=== PATIENT | male | born 1960 | race Caucasian/White ===

== ENCOUNTER 2022-03-07 16:14 | Inpatient (IN) ==
--- NOTE | 2022-03-07 16:59 | Emergency Department Note ---
Impression & Plan Weakness, Transaminitis, Elevated bilirubin, Leg swelling ED Provider Note NAME: HE LUCAS AGE: 62 SEX: M : 1960 ARRIVES VIA: Walk-In INFORMANT: Patient, Family ED PROVIDER(S): Gurdeep Madison DO CHIEF COMPLAINT: Weakness HPI: Patient is a 62-year-old male who just got discharged from [facility] earlier this week. He was admitted last week for weakness and alcohol abuse. He generally drinks about a half a gallon of alcohol every 2 days. He has not been drinking any vodka since being discharged. Family is unable to care for him at home. He can barely walk. He denies any headache or change in vision. No chest pain or shortness of breath. No nausea, vomiting, or diarrhea. No dysuria, urgency, or frequency. No other exacerbating or remitting factors. ROS: See above HPI for pertinent positives & negatives. A total of 10 systems reviewed and were otherwise negative. PAST MEDICAL HISTORY:See Below PAST SURGICAL HISTORY:See Below FAMILY HISTORY:See Below SOCIAL HISTORY:See Below HOME MEDICATIONS:See Below ALLERGIES:See Below VITALS:See Below PHYSICAL EXAMINATION: GENERAL: Sitting up in bed, alert, well appearing, well nourished, no distress, non-toxic EYE EXAM: normal conjunctiva. OROPHARYNX: no exudate, no erythema, lips, buccal mucosa, and tongue normal and mucous membranes are moist NECK: supple, no nuchal rigidity, no adenopathy, non-tender LUNGS: Clear to auscultation. Normal chest wall mechanics HEART: no murmurs, S1 normal and S2 normal ABDOMEN: abdomen soft, non-tender, normo-active bowel sounds, no masses, no aiden ound or guarding. UPPER EXTREMITIES: upper extremities are grossly normal. LOWER EXTREMITIES: No pitting edema. NEURO EXAM: Normal sensorium, cranial nerves II-XII grossly intact, normal speech, no weakness of arms, no weakness of legs. Wide shuffling gait. No drift. Tremors of bilateral upper extremities. [id number] intact. MEDICAL DECISION MAKING: Patient is a 62-year-old male who presents the ER for above-stated complaint. Family brought him in as they can no longer care for him at home. He has had a gradual deterioration since being admitted and when they got him home from [facility] they have been struggling to take care of him. Labs show no significant leukocytosis. He was referred in by PCP. Hemoglobin with mild anemia at 9. BMP was unremarkable. T bili slightly up at 1.5. AST and ALT at 100. Lipase was normal. COVID was negative. Chest x-ray as well as Doppler of the right lower extremity and ultrasound gallbladder was unremarkable. Case discussed with hospitalist for further evaluation. Triage Nursing notes reviewed. Limited review of prior medical records performed Vital Signs: reviewed and remarkable for no significant abnormalities Differential diagnosis: Infection, dehydration, metabolic abnormality, hypo/hyperglycemia, electrolyte disturbance, anemia, hypoxia, cardiac sources, intracerebral event, toxicologic, neurologic, as well as other pathologies. ER treatment provided: See below Diagnostics interpreted by me: ECG: none Cardiac Monitoring: An order was placed for continuous cardiac monitoring. The monitor shows a rate of 80 with sinus rhythm. Laboratory studies: As stated above and show below. Imaging studies: Ultrasound liver/gallbladder was unremarkable for any choledocholithiasis Ultrasound leg showed no DVT Chest x-ray was unremarkable Consultation(s): Discussed with [facility] hospitalist for further evaluation Procedures: none Critical Care: None Past Med/Surg History Social History Smoking Status: Never smoker Tobacco Type: E-cigarettes / Vaping Hx Alcohol Use: Yes Alcohol type: beer Hx Substance Use: No Preferred Language: Omani Communication Ability: Effective Electrical Apprentice Required: No Beliefs That Will Affect Care: None Current Living Situation: Spouse and Family Current Living Situation Comment: Pt reported living with spouse and son Other Information That Helps Us Care for You: No Feels Safe at Home: Yes Safety Concerns: Feels Safe At This Time Assistive Devices: Glasses and Walker Allergies Allergies Allergy/AdvReac Type Severity Reaction Status Date / Time No Known Allergies Allergy Unverified 03/07/22 17:14 Home Meds Home Medications Medication Instructions Recorded Confirmed allopurinol 300 mg tablet 300 mg PO QAM 03/07/22 03/07/22 chlordiazepoxide HCl 25 mg capsule 25 mg PO TID PRN 03/07/22 03/07/22 dexamethasone 4 mg tablet 4 mg PO QAM 03/07/22 03/07/22 (Decadron) lisinopril 30 mg tablet 30 mg PO QAM 03/07/22 03/07/22 Results & Data (ED) Vital Signs Vital Signs - 24 hr 03/07/22 16:19 03/07/22 17:04 03/07/22 17:05 Temperature 36.3 C L Temperature Source Temporal Artery Scan Pulse Rate 84 83 Pulse Rate [Apical] 80 Pulse Rate from SpO2 Sensor 81 Respiratory Rate 18 24 Respiratory Effort / Characteristics Non-Labored Respiratory Depth Normal Respiratory Pattern Regular Blood Pressure 111/75 Blood Pressure [Left Arm] 139/84 Blood Pressure Mean 87 Blood Pressure Mean [Left Arm] 102 Pulse Oximetry 100 100 99 Oxygen Delivery Method Room Air Room Air Room Air Sepsis Recent Fever Within 48 Hours No Sepsis New/Unexplained Change in Mental Status No Sepsis Action Taken by Nursing No Action Required 03/07/22 17:30 03/07/22 18:00 03/07/22 18:30 Temperature Temperature Source Pulse Rate 82 83 88 Pulse Rate [Apical] Pulse Rate from SpO2 Sensor 81 84 88 Respiratory Rate 21 20 24 Respiratory Effort / Characteristics Respiratory Depth Respiratory Pattern Blood Pressure Blood Pressure [Left Arm] Blood Pressure Mean Blood Pressure Mean [Left Arm] Pulse Oximetry 99 99 99 Oxygen Delivery Method Sepsis Recent Fever Within 48 Hours Sepsis New/Unexplained Change in Mental Status Sepsis Action Taken by Nursing 03/07/22 19:00 Temperature Temperature Source Pulse Rate 82 Pulse Rate [Apical] Pulse Rate from SpO2 Sensor 82 Respiratory Rate 19 Respiratory Effort / Characteristics Respiratory Depth Respiratory Pattern Blood Pressure Blood Pressure [Left Arm] Blood Pressure Mean Blood Pressure Mean [Left Arm] Pulse Oximetry 100 Oxygen Delivery Method Sepsis Recent Fever Within 48 Hours Sepsis New/Unexplained Change in Mental Status Sepsis Action Taken by Nursing Laboratory Data Result diagrams: 03/07/22 17:05 03/07/22 17:05 Lab Results 03/07/22 03/07/22 Range/Units 17:05 17:05 WBC 5.92 (4.8-10.8) K/uL RBC 2.53 L (4.7-6.1) M/uL Hgb 8.9 L (14.0-18.0) g/dL Hct 26.7 L (42-52) % MCV 105.5 H (80-100) fL MCH 35.2 H (25-34) pg MCHC 33.3 (32-36) g/dL RDW Std Deviation 60.2 H (36.4-46.3) fL RDW Coeff of Gage 15.7 H (11.5-14.5) % Plt Count 181 (130-400) K/uL MPV 9.3 (7.4-10.4) fL Immature Gran % (Auto) 0.7 % Neut % (Auto) 81.8 % Lymph % (Auto) 7.4 % Candler % (Auto) 9.6 % Eos % (Auto) 0.3 % Baso % (Auto) 0.2 % Neut # (Auto) 4.84 (1.4-6.5) K/uL Lymph # (Auto) 0.44 L (1.2-3.4) K/uL Candler # (Auto) 0.57 (0.11-0.59) K/uL Eos # (Auto) 0.02 (0-0.5) K/uL Baso # (Auto) 0.01 (0-0.2) K/uL Immature Gran # (Auto) 0.04 H (0.00-0.02) K/uL Sodium 136 (136-145) mmol/L Potassium 4.7 (3.5-5.1) mmol/L Chloride 107 (98-107) mmol/L Carbon Dioxide 22 (21-32) mmol/L Anion Gap 7 (3-11) BUN 28 H (6-23) mg/dl Creatinine 1.26 (0.6-1.4) mg/dl Est Cr Clr Drug Dosing Not Reportable Est GFR ( Amer) 69.9 ml/min Est GFR (Non-Af Amer) 60.3 ml/min BUN/Creatinine Ratio 22.2 H (10-20) Glucose 119 H (70-99(Fasting)) mg/dl Calcium 8.9 (8.5-10.1) mg/dl Total Bilirubin 1.5 H (0.2-1.0) mg/dl AST 115 H (13-39) U/L ALT 89 H (7-52) U/L Alkaline Phosphatase 194 H (34-104) U/L Total Protein 7.0 (6.0-8.3) gm/dl Albumin 3.7 (3.4-5.0) gm/dl Globulin 3.3 (2.5-4.0) gm/dl Albumin/Globulin Ratio 1.1 (0.9-2) Lipase 21 (11-82) U/L Imaging Data Radiologist's Impression: Gallbladder Ultrasound 03/07/22 18:47 ULTRASOUND RIGHT UPPER QUADRANT ABDOMEN CLINICAL HISTORY: Elevated hepatic transaminases and bilirubin. COMPARISON STUDY: No priors TECHNIQUE: Real-time, grayscale, and color flow sonography of the right upper quadrant of the abdomen was performed. Images are reviewed in the transverse and longitudinal planes. FINDINGS: Liver: The liver is enlarged and demonstrates heterogeneously increased echotexture consistent with hepatic steatosis. Note that this degrades acoustic penetration of the liver. There is no intrahepatic biliary ductal dilatation. The main portal vein is patent. Gallbladder: The gallbladder is normal in appearance. No gallstones are identified. There is no gallbladder wall thickening or pericholecystic fluid. A sonographic Sims's sign is reportedly absent. The common bile duct measures up to 0.7 cm in diameter. Pancreas: Visualized portions of the pancreatic head and body are normal in appearance. Right kidney: Survey images of the right kidney demonstrate normal size and echotexture. There is no hydronephrosis. Ascites: None. IMPRESSION: 1. No acute sonographic abnormality is seen in the right upper quadrant. No gallstones are identified. 2. Hepatomegaly and hepatic steatosis. ACT 112: Negative or not required by law. Electronically signed by: Eddie Torres M.D. 03/07/2022 8:06 PM Venous Doppler Study 03/07/22 18:47 ULTRASOUND RIGHT LOWER EXTREMITY VENOUS CLINICAL HISTORY: Right leg swelling. COMPARISON STUDY: No priors. TECHNIQUE: Real-time, grayscale, and color Doppler sonography of the deep veins of the right lower extremity was performed from the inguinal crease to the calf. Compression and augmentation were utilized. FINDINGS: There is no sonographic evidence of deep venous thrombosis identified in the right lower extremity. The common femoral, superficial femoral, and popliteal veins are patent and normally compressible. The greater saphenous vein and the profunda femoris vein at the junction with the common femoral vein are clear. The visualized calf veins are patent. IMPRESSION: There is no sonographic evidence of deep venous thrombosis identified in the right lower extremity. ACT 112: Negative or not required by law. Electronically signed by: Eddie Torres M.D. 03/07/2022 8:04 PM Chest X-Ray 03/07/22 18:48 SINGLE VIEW CHEST CLINICAL HISTORY: Lower extremity edema FINDINGS: An AP, portable, upright chest radiograph is obtained. No prior studies are available for comparison at the time of dictation. The cardiomediastinal silhouette is unremarkable. There is no elevation of the right hemidiaphragm and minimal bibasilar atelectasis. The lungs and pleural spaces are otherwise clear. No pneumothorax is seen. The bony thorax is grossly intact. IMPRESSION: No active disease in the chest. ACT 112: Negative or not required by law. Electronically signed by: Eddie Torres M.D. 03/07/2022 7:47 PM Discharge Plan Visit Data Chief Complaint: Referred by Doctor Stated Complaint: REFERRED BY DR FOR SWELLING IN LEGS ED Provider: Gurdeep Madison Discharge Problem: Weakness, Transaminitis, Elevated bilirubin, Leg swelling Patient Disposition: Admitted As Inpatient Discharge Instructions Interventions: ED Discharge Assessment Last Done: 03/07/22 21:47
[2022-03-07 17:19] LABS: Basophils # (auto) 0.01 K/uL (0-0.2); Basophils % (auto) 0.2 %; Eosinophils # (auto) 0.02 K/uL (0-0.5); Eosinophils % (auto) 0.3 %; Hematocrit (blood only) 26.7 % (42-52); Hemoglobin 8.9 g/dL (14.0-18.0); Immature Granulocytes # (auto) 0.04 K/uL (0.00-0.02); Immature Granulocytes % (auto) 0.7 %; Lymphocytes # (auto) 0.44 K/uL (1.2-3.4); Lymphocytes % (auto) 7.4 %; Mean Corpuscular Hemoglobin 35.2 pg (25-34); Mean Corpuscular Hgb Conc 33.3 g/dL (32-36); Mean Corpuscular Volume 105.5 fL (80-100); Mean Platelet Volume 9.3 fL (7.4-10.4); Monocytes # (auto) 0.57 K/uL (0.11-0.59); Monocytes % (auto) 9.6 %; Neutrophils # (auto) 4.84 K/uL (1.4-6.5); Neutrophils % (auto) 81.8 %; Platelet Count 181 K/uL (130-400); RDW Coefficient of Variation 15.7 % (11.5-14.5); RDW Standard Deviation 60.2 fL (36.4-46.3); Red Blood Count 2.53 M/uL (4.7-6.1); White Blood Count 5.92 K/uL (4.8-10.8)
[2022-03-07 18:37] LABS: Alanine Aminotransferase 89 U/L (7-52); Albumin Globulin Ratio 1.1 (0.9-2); Albumin Level 3.7 gm/dl (3.4-5.0); Alkaline Phosphatase 194 U/L (34-104); Anion Gap 7 (3-11); Aspartate Aminotransferase 115 U/L (13-39); BUN Creatinine Ratio 22.2 (10-20); Bilirubin,Total 1.5 mg/dl (0.2-1.0); Blood Urea Nitrogen 28 mg/dl (6-23); Calcium 8.9 mg/dl (8.5-10.1); Carbon Dioxide 22 mmol/L (21-32); Chloride 107 mmol/L (98-107); Est GFR (African American) 69.9 ml/min; Est GFR (Non-African American) 60.3 ml/min; Globulin 3.3 gm/dl (2.5-4.0); Glucose 119 mg/dl (70-99(Fasting)); Lipase 21 U/L (11-82); Potassium 4.7 mmol/L (3.5-5.1); Sodium 136 mmol/L (136-145)
--- NOTE | 2022-03-07 19:49 | XRay Report ---
SINGLE VIEW CHEST CLINICAL HISTORY: Lower extremity edema FINDINGS: An AP, portable, upright chest radiograph is obtained. No prior studies are available for c omparison at the time of dictation. The cardiomediastinal silhouette is unremarkable. There is no el evation of the right hemidiaphragm and minimal bibasilar atelectasis. The lungs and pleural spaces ar e otherwise clear. No pneumothorax is seen. The bony thorax is grossly intact. IMPRESSION: No active disease in the chest. ACT 112: Negative or not required by law. Electronically signed by: Eddie Torres M.D. 03/07/2022 7:47 PM
--- NOTE | 2022-03-07 20:06 | Ultrasound Report ---
ULTRASOUND RIGHT LOWER EXTREMITY VENOUS CLINICAL HISTORY: Right leg swelling. COMPARISON STUDY: No priors. TECHNIQUE: Real-time, grayscale, and color Doppler sonography of the deep veins of the right lower ex tremity was performed from the inguinal crease to the calf. Compression and augmentation were utilize d. FINDINGS: There is no sonographic evidence of deep venous thrombosis identified in the right lower ex tremity. The common femoral, superficial femoral, and popliteal veins are patent and normally brayan sible. The greater saphenous vein and the profunda femoris vein at the junction with the common femor al vein are clear. The visualized calf veins are patent. IMPRESSION: There is no sonographic evidence of deep venous thrombosis identified in the right lower extremity. ACT 112: Negative or not required by law. Electronically signed by: Eddie Torres M.D. 03/07/2022 8:04 PM
--- NOTE | 2022-03-07 20:07 | Ultrasound Report ---
ULTRASOUND RIGHT UPPER QUADRANT ABDOMEN CLINICAL HISTORY: Elevated hepatic transaminases and bilirubin. COMPARISON STUDY: No priors TECHNIQUE: Real-time, grayscale, and color flow sonography of the right upper quadrant of the abdomen was performed. Images are reviewed in the transverse and longitudinal planes. FINDINGS: Liver: The liver is enlarged and demonstrates heterogeneously increased echotexture consistent with h epatic steatosis. Note that this degrades acoustic penetration of the liver. There is no intrahepatic biliary ductal dilatation. The main portal vein is patent. Gallbladder: The gallbladder is normal in appearance. No gallstones are identified. There is no gallb ladder wall thickening or pericholecystic fluid. A sonographic Sims's sign is reportedly absent. Th e common bile duct measures up to 0.7 cm in diameter. Pancreas: Visualized portions of the pancreatic head and body are normal in appearance. Right kidney: Survey images of the right kidney demonstrate normal size and echotexture. There is no hydronephrosis. Ascites: None. IMPRESSION: 1. No acute sonographic abnormality is seen in the right upper quadrant. No gallstones are identified . 2. Hepatomegaly and hepatic steatosis. ACT 112: Negative or not required by law. Electronically signed by: Eddie Torres M.D. 03/07/2022 8:06 PM
[2022-03-07] MEDS ORDERED: POLYETHYLENE (MIRALAX) 17 GM PACK PO PRN (22:32)
[2022-03-07] MEDS ORDERED: ONDANSETRON INJ 2 MG/ML 2 ML VIAL IV PRN (22:32)
--- NOTE | 2022-03-07 22:52 | History and Physical Report ---
DATE OF ADMISSION: 03/07/2022. CHIEF COMPLAINT: Ambulatory dysfunction. HISTORY OF PRESENT ILLNESS: A 62-year-old male with past medical history significant for gout, hypertension, alcoholism, comes with ambulatory dysfunction. The patient was recently in [facility] for alcoholism, ambulatory dysfunction, lower extremity swelling. As per family, all the workup was negative and he was there for 1 week and was treated for alcohol withdrawal and discharged last Saturday. He lives with his . At [facility], he was ambulating with a walker, but since coming home, he is not able to ambulate anything at all, not able to get up from the bed, that is why the brought him to the hospital for further physical therapy. He used to drink vodka 1 gallon every 2 days before he got admitted to [place], but since he came home, he is not drinking. The patient is alert and oriented. Denies any headache. No blurred visions, no earache, no runny nose, no sore throat, no cough, no chest pain, no shortness of breath. No nausea, no vomiting, no abdominal pain, normal bowel and bladder movements. Denies any cough, no fevers, resting comfortably. He says he is eating and swallowing okay. ALLERGIES: No known drug allergies. PAST MEDICAL HISTORY: As mentioned above. PAST SURGICAL HISTORY: None. MEDICATIONS: The patient is on allopurinol 300 mg p.o. a.m., lisinopril 30 mg p.o. a.m. SOCIAL HISTORY: He drinks alcohol as mentioned above. No smoking. FAMILY HISTORY: Noncontributory. REVIEW OF SYMPTOMS: As per HPI. Rest of review of systems is negative. PHYSICAL EXAMINATION: GENERAL: The patient is of moderate build, not in acute distress. VITAL SIGNS: Temperature 36.3, pulse 82, respiratory rate 19, blood pressure 139/84, oxygen 100% on room air. HEENT: Pupils equal, round and reactive to light. Oral mucosa moist. NECK: No JVD, no neck masses. CARDIOVASCULAR: S1 and S2 heard. Regular rate and rhythm. No murmur, no gallop. RESPIRATORY SYSTEM: Normal AP diameter. No accessory muscle use. No wheezing, no crackles. ABDOMEN: Soft. Bowel sounds are present, nontender, no distention. CENTRAL NERVOUS SYSTEM: Cranial nerves II-XII grossly intact, nonfocal. EXTREMITIES: Bilateral lower extremity edema present, right greater than left, erythema seen. LABORATORY DATA: WBC 5.9, hemoglobin 8.9, hematocrit 26.7, platelets 181. Sodium 136, potassium 4.7, chloride 107, bicarb 22, BUN 28, creatinine 1.2, serum glucose 119, calcium 8.9, total bilirubin 1.5, AST 115, ALT 89, alkaline phosphatase 194. SARS-CoV-2 rapid test negative. Lipase 21. IMAGING: Chest x-ray: No acute findings. Venous Doppler: There is no sonographic evidence of DVT in the right lower extremity. Gallbladder ultrasound: Hepatomegaly and hepatic steatosis. No gallstones identified. ASSESSMENT AND PLAN: This is a 62-year-old male who presents with ambulatory dysfunction. 1. Ambulatory dysfunction: The patient was recently in the [facility] for alcoholism and ambulatory dysfunction. The workup was negative as per family. We will get physical therapy and occupational therapy evaluation. Possible deconditioning related to alcoholism and also if any concern, we will get imaging studies of the back and also of head. Monitor in the hospital. 2. Alcoholism: recently was in [facility], he was treated for alcoholism as per the family and since coming home last Saturday, he is not drinking. We will continue with p.o. thiamine, folic acid, multivitamins and place him on IV Ativan p.r.n. for now and monitor. 3. Hypertension: Continue his lisinopril. 4. History of gout: Continue allopurinol. 5. Anemia: Hemoglobin of 8.9. We will follow Hemoccult studies and we will get iron studies, vitamin B12, and folate levels. 6. Elevated liver function studies: Possibly from alcoholism. Follow the repeat laboratories. Gallbladder ultrasound shows hepatomegaly and hepatic steatosis. We will monitor. If any concern, we will get gastrointestinal consult. 7. Deep venous thrombosis prophylaxis: Lovenox for now. DISPOSITION: Closely monitor in the medical floor. PT/OT. Social Service to help with discharge planning. Job ID: [id number] [id number]
[2022-03-07] MEDS: ENOXAPARIN INJ 40 MG/0.4 ML SYR SQ SCH (23:20)
[2022-03-08 05:57] LABS: Basophils # (auto) 0.03 K/uL (0-0.2); Basophils % (auto) 0.5 %; Eosinophils % (auto) 3.4 %; Hematocrit (blood only) 24.3 % (42-52); Immature Granulocytes # (auto) 0.03 K/uL (0.00-0.02); Immature Granulocytes % (auto) 0.5 %; Lymphocytes # (auto) 1.14 K/uL (1.2-3.4); Lymphocytes % (auto) 19.5 %; Mean Corpuscular Hemoglobin 34.9 pg (25-34); Mean Corpuscular Hgb Conc 32.9 g/dL (32-36); Mean Corpuscular Volume 106.1 fL (80-100); Monocytes # (auto) 0.58 K/uL (0.11-0.59); Monocytes % (auto) 9.9 %; Neutrophils # (auto) 3.88 K/uL (1.4-6.5); Neutrophils % (auto) 66.2 %; Platelet Count 179 K/uL (130-400); RDW Coefficient of Variation 15.7 % (11.5-14.5); RDW Standard Deviation 60.9 fL (36.4-46.3); Red Blood Count 2.29 M/uL (4.7-6.1); White Blood Count 5.86 K/uL (4.8-10.8)
[2022-03-08 06:20] LABS: Iron 55 mcg/dl (35-175); Total Iron Binding Cap Calc 187 mcg/dl (250-450); Transferrin (FE) Percent Satur 29 % (20-50); Unsaturated Iron Binding Cap 132 mcg/dl (155-355)
[2022-03-08 06:40] LABS: Folate (Folic Acid) 12.18 ng/ml (>5.38)
[2022-03-08 06:42] LABS: Albumin Level 3.1 gm/dl (3.4-5.0); BUN Creatinine Ratio 23.4 (10-20); Bilirubin Direct 0.4 mg/dl (0-0.2); Bilirubin,Total 1.1 mg/dl (0.2-1.0); Calcium 8.5 mg/dl (8.5-10.1); Creatinine Clr Calc Pharmacy 78.7 ml/min; Est GFR (African American) 99.6 ml/min; Est GFR (Non-African American) 85.9 ml/min; Magnesium 1.6 mg/dl (1.7-2.4); Total Protein 5.9 gm/dl (6.0-8.3)
[2022-03-08] MEDS ORDERED: MAGNESIUM SULFATE / D5W 1 GM/100 ML BAG IV ONE (07:17)
--- NOTE | 2022-03-08 07:22 | Hospitalist Progress Note ---
Date of Service March 08, 2022 Assessment & Plan (1) Weakness: Plan: This is a 62-year-old male who presents with ambulatory dysfunction. 1. Ambulatory dysfunction: The patient was recently in the [facility] for alcoholism and ambulatory dysfunction. The workup was negative as per family. We will get physical therapy and occupational therapy evaluation. Possible deconditioning related to alcoholism and also if any concern, we will get imaging studies of the back and also of head. Monitor in the hospital. 2. Alcoholism: recently was in [facility], -he was treated for alcoholism as per the family and since coming home last Saturday, he is not drinking. -We will continue with p.o. thiamine, folic acid, multivitamins and place him on IV Ativan p.r.n. for now and monitor. 3. Hypertension: Continue his lisinopril. 4. History of gout: Continue allopurinol. 5. Anemia: Hemoglobin of 8.9. We will follow Hemoccult studies and we will get iron studies, vitamin B12, and folate levels. B12, folate level normal 6. Elevated liver function studies: Possibly from alcoholism. Follow the repeat laboratories. LFTs trending down gallbladder ultrasound shows hepatomegaly and hepatic steatosis. We will monitor. If any concern, we will get gastrointestinal consult. DVT prophylaxis: Lovenox for now. DISPOSITION: Closely monitor in the medical floor. PT/OT. Social Service to help with discharge planning. Admission and Anticipated Discharge Date Admission Date: March 07, 2022 Subjective Patient seen in follow-up of weakness/ambulatory dysfunction Patient currently laying in bed, in no acute distress Denies any fevers, chills, chest pain, shortness of breath, abdomen, nausea vomiting Patient feels very weak Awaiting PT evaluation Family/son-in-law at the bedside and updated Review of Systems Review of Systems: All systems reviewed & are unremarkable except as noted in Subjective Physical Exam Physical Exam: GENERAL: The patient is of moderate build, not in acute distress. HEENT: NC/AT. EOMI. Pupils equal, round and reactive to light. Oral mucosa moist. NECK: No JVD, no neck masses. CARDIOVASCULAR: S1 and S2 heard. Regular rate and rhythm. No murmur, no gallop. RESPIRATORY SYSTEM: Normal AP diameter. No accessory muscle use. No wheezing, no crackles. ABDOMEN: Soft. Bowel sounds are present, nontender, no distention. CENTRAL NERVOUS SYSTEM:Sleepy but easily arousable, answers most questions appropriately, speech fluent, no facial asymmetry, moves extremities, gait not tested EXTREMITIES: trace lower extremity edema R>L present (much improved). Results & Data Results & Data ([facility]) Vital Signs (Past 12 Hours) Vital Signs Temp Pulse Resp BP BP Pulse Ox 03/07/22 22:21 36.8 C 86 18 146/76 H 100 03/07/22 21:18 123/73 97 Laboratory Results 03/08/22 03/08/22 03/08/22 Range/Units 05:41 05:41 05:41 WBC 5.86 (4.8-10.8) K/uL RBC 2.29 L (4.7-6.1) M/uL Hgb 8.0 L (14.0-18.0) g/dL Hct 24.3 L (42-52) % MCV 106.1 H (80-100) fL MCH 34.9 H (25-34) pg MCHC 32.9 (32-36) g/dL RDW Std Deviation 60.9 H (36.4-46.3) fL RDW Coeff of Gage 15.7 H (11.5-14.5) % Plt Count 179 (130-400) K/uL MPV 9.0 (7.4-10.4) fL Immature Gran % (Auto) 0.5 % Neut % (Auto) 66.2 % Lymph % (Auto) 19.5 % Nolan % (Auto) 9.9 % Eos % (Auto) 3.4 % Baso % (Auto) 0.5 % Neut # (Auto) 3.88 (1.4-6.5) K/uL Lymph # (Auto) 1.14 L (1.2-3.4) K/uL Nolan # (Auto) 0.58 (0.11-0.59) K/uL Eos # (Auto) 0.20 (0-0.5) K/uL Baso # (Auto) 0.03 (0-0.2) K/uL Immature Gran # (Auto) 0.03 H (0.00-0.02) K/uL Sodium (136-145) mmol/L Potassium (3.5-5.1) mmol/L Chloride (98-107) mmol/L Carbon Dioxide (21-32) mmol/L Anion Gap (3-11) BUN (6-23) mg/dl Creatinine (0.6-1.4) mg/dl Est Cr Clr Drug Dosing Est GFR ( Amer) ml/min Est GFR (Non-Af Amer) ml/min BUN/Creatinine Ratio (10-20) Glucose (70-99(Fasting)) mg/dl Calcium (8.5-10.1) mg/dl Magnesium (1.7-2.4) mg/dl Iron 55 (35-175) mcg/dl TIBC 187 L (250-450) mcg/dl Unsaturated IBC 132 L (155-355) mcg/dl Transferrin % Sat 29 (20-50) % Total Bilirubin (0.2-1.0) mg/dl Direct Bilirubin (0-0.2) mg/dl AST (13-39) U/L ALT (7-52) U/L Alkaline Phosphatase (34-104) U/L Total Protein (6.0-8.3) gm/dl Albumin (3.4-5.0) gm/dl Globulin (2.5-4.0) gm/dl Albumin/Globulin Ratio (0.9-2) Lipase (11-82) U/L Vitamin B12 1145 H (180-914) pg/ml Folate 12.18 (>5.38) ng/ml SARS-CoV-2, RNA, NAAT (NEGATIVE) 03/08/22 03/07/22 03/07/22 Range/Units 05:41 Unknown 17:05 WBC (4.8-10.8) K/uL RBC (4.7-6.1) M/uL Hgb (14.0-18.0) g/dL Hct (42-52) % MCV (80-100) fL MCH (25-34) pg MCHC (32-36) g/dL RDW Std Deviation (36.4-46.3) fL RDW Coeff of Gage (11.5-14.5) % Plt Count (130-400) K/uL MPV (7.4-10.4) fL Immature Gran % (Auto) % Neut % (Auto) % Lymph % (Auto) % Nolan % (Auto) % Eos % (Auto) % Baso % (Auto) % Neut # (Auto) (1.4-6.5) K/uL Lymph # (Auto) (1.2-3.4) K/uL Nolan # (Auto) (0.11-0.59) K/uL Eos # (Auto) (0-0.5) K/uL Baso # (Auto) (0-0.2) K/uL Immature Gran # (Auto) (0.00-0.02) K/uL Sodium 139 136 (136-145) mmol/L Potassium 4.0 4.7 (3.5-5.1) mmol/L Chloride 111 H 107 (98-107) mmol/L Carbon Dioxide 20 L 22 (21-32) mmol/L Anion Gap 8 7 (3-11) BUN 22 28 H (6-23) mg/dl Creatinine 0.94 D 1.26 (0.6-1.4) mg/dl Est Cr Clr Drug Dosing 78.7 Not Reportable Est GFR ( Amer) 99.6 69.9 ml/min Est GFR (Non-Af Amer) 85.9 60.3 ml/min BUN/Creatinine Ratio 23.4 H 22.2 H (10-20) Glucose 87 119 H (70-99(Fasting)) mg/dl Calcium 8.5 8.9 (8.5-10.1) mg/dl Magnesium 1.6 L (1.7-2.4) mg/dl Iron (35-175) mcg/dl TIBC (250-450) mcg/dl Unsaturated IBC (155-355) mcg/dl Transferrin % Sat (20-50) % Total Bilirubin 1.1 H 1.5 H (0.2-1.0) mg/dl Direct Bilirubin 0.4 H (0-0.2) mg/dl AST 80 H 115 H (13-39) U/L ALT 66 H 89 H (7-52) U/L Alkaline Phosphatase 163 H 194 H (34-104) U/L Total Protein 5.9 L 7.0 (6.0-8.3) gm/dl Albumin 3.1 L 3.7 (3.4-5.0) gm/dl Globulin 3.3 (2.5-4.0) gm/dl Albumin/Globulin Ratio 1.1 (0.9-2) Lipase 21 (11-82) U/L Vitamin B12 (180-914) pg/ml Folate (>5.38) ng/ml SARS-CoV-2, RNA, NAAT NEGATIVE (NEGATIVE) 03/07/22 Range/Units 17:05 WBC 5.92 (4.8-10.8) K/uL RBC 2.53 L (4.7-6.1) M/uL Hgb 8.9 L (14.0-18.0) g/dL Hct 26.7 L (42-52) % MCV 105.5 H (80-100) fL MCH 35.2 H (25-34) pg MCHC 33.3 (32-36) g/dL RDW Std Deviation 60.2 H (36.4-46.3) fL RDW Coeff of Gage 15.7 H (11.5-14.5) % Plt Count 181 (130-400) K/uL MPV 9.3 (7.4-10.4) fL Immature Gran % (Auto) 0.7 % Neut % (Auto) 81.8 % Lymph % (Auto) 7.4 % Nolan % (Auto) 9.6 % Eos % (Auto) 0.3 % Baso % (Auto) 0.2 % Neut # (Auto) 4.84 (1.4-6.5) K/uL Lymph # (Auto) 0.44 L (1.2-3.4) K/uL Nolan # (Auto) 0.57 (0.11-0.59) K/uL Eos # (Auto) 0.02 (0-0.5) K/uL Baso # (Auto) 0.01 (0-0.2) K/uL Immature Gran # (Auto) 0.04 H (0.00-0.02) K/uL Sodium (136-145) mmol/L Potassium (3.5-5.1) mmol/L Chloride (98-107) mmol/L Carbon Dioxide (21-32) mmol/L Anion Gap (3-11) BUN (6-23) mg/dl Creatinine (0.6-1.4) mg/dl Est Cr Clr Drug Dosing Est GFR ( Amer) ml/min Est GFR (Non-Af Amer) ml/min BUN/Creatinine Ratio (10-20) Glucose (70-99(Fasting)) mg/dl Calcium (8.5-10.1) mg/dl Magnesium (1.7-2.4) mg/dl Iron (35-175) mcg/dl TIBC (250-450) mcg/dl Unsaturated IBC (155-355) mcg/dl Transferrin % Sat (20-50) % Total Bilirubin (0.2-1.0) mg/dl Direct Bilirubin (0-0.2) mg/dl AST (13-39) U/L ALT (7-52) U/L Alkaline Phosphatase (34-104) U/L Total Protein (6.0-8.3) gm/dl Albumin (3.4-5.0) gm/dl Globulin (2.5-4.0) gm/dl Albumin/Globulin Ratio (0.9-2) Lipase (11-82) U/L Vitamin B12 (180-914) pg/ml Folate (>5.38) ng/ml SARS-CoV-2, RNA, NAAT (NEGATIVE) Medications Administered Current Inpatient Medications Allopurinol (Allopurinol 300 Mg Tab) 300 mg PO [facility] Stop: 04/07/22 08:59 Enoxaparin Sodium (Enoxaparin Inj 40 Mg/0.4 Ml Syr) 40 mg SQ HS [facility] Stop: 04/06/22 22:59 Last Admin: 03/07/22 23:20 Dose: 40 mg Documented by: Folic Acid (Folic Acid 1 Mg Tab) 1 mg PO [facility] Stop: 04/07/22 08:59 Magnesium Sulfate/Dextrose (Magnesium Sulfate / D5w) 1 gm in 100 mls @ 50 mls/hr IV ONE ONE Stop: 03/08/22 09:16 Lisinopril (Lisinopril 10 Mg Tab) 30 mg PO [facility] Stop: 04/07/22 08:59 Lorazepam (Lorazepam 2 Mg/1 Ml Vial) 0.5 mg IV Q4H PRN; Protocol PRN Reason: Anxiety/Agitation Stop: 04/06/22 22:31 Multivitamins/Minerals (Cerovite Adv Formula Tab) 1 tab PO [facility] Stop: 04/07/22 08:59 Ondansetron HCl (Ondansetron Inj 2 Mg/Ml 2 Ml Vial) 4 mg IV Q6H PRN PRN Reason: Nausea Stop: 04/06/22 22:31 Polyethylene Glycol (Polyethylene (Miralax) 17 Gm Pack) 17 gm PO DAILY PRN PRN Reason: Constipation Stop: 04/06/22 22:31 Thiamine HCl (Thiamine Hcl 100 Mg Tab) 100 mg PO QAM [facility] Stop: 04/07/22 08:59
[2022-03-08] MEDS: allopurinoL 300 MG TAB PO SCH (08:43)
[2022-03-08] MEDS: CEROVITE ADV FORMULA TAB PO SCH (08:43)
[2022-03-08] MEDS: FOLIC ACID 1 MG TAB PO SCH (08:43)
[2022-03-08] MEDS: lisinopril 10 MG TAB PO SCH (08:43)
[2022-03-08] MEDS: THIAMINE HCL 100 MG TAB PO SCH (08:43)
[2022-03-08 10:59] LABS: Appearance Urine Clear (Clear); Bilirubin Urine Negative (Negative); Blood Urine Negative (Negative); Color Urine Dark Yellow; Glucose Urine UA Negative (Negative); Ketones Urine Negative (Negative); Leukocyte Esterase Urine Negative (Negative); Nitrite Urine Negative (Negative); Protein Urine Negative (Negative); Specific Gravity Urine 1.016 (1.000-1.030); Urobilinogen Urine Negative (Negative)
[2022-03-08] MEDS: ENOXAPARIN INJ 40 MG/0.4 ML SYR SQ SCH (21:44)
[2022-03-09] MEDS: allopurinoL 300 MG TAB PO SCH (08:36)
[2022-03-09] MEDS: THIAMINE HCL 100 MG TAB PO SCH ×3 (08:36→20:12)
[2022-03-09] MEDS: lisinopril 10 MG TAB PO SCH (08:36)
[2022-03-09] MEDS: FOLIC ACID 1 MG TAB PO SCH (08:36)
[2022-03-09] MEDS: CEROVITE ADV FORMULA TAB PO SCH (08:36)
[2022-03-09 09:04] LABS: Hematocrit (blood only) 28.6 % (42-52); Hemoglobin 9.1 g/dL (14.0-18.0); Mean Corpuscular Hgb Conc 31.8 g/dL (32-36); Mean Platelet Volume 9.3 fL (7.4-10.4); Platelet Count 201 K/uL (130-400); RDW Coefficient of Variation 15.6 % (11.5-14.5); RDW Standard Deviation 62.6 fL (36.4-46.3); White Blood Count 6.38 K/uL (4.8-10.8)
[2022-03-09 09:25] LABS: Albumin Level 3.2 gm/dl (3.4-5.0); Bilirubin,Total 1.4 mg/dl (0.2-1.0); Calcium 8.8 mg/dl (8.5-10.1); Creatinine Clr Calc Pharmacy 67.2 ml/min; Est GFR (African American) 82.4 ml/min; Est GFR (Non-African American) 71.1 ml/min; Globulin 3.1 gm/dl (2.5-4.0); Magnesium 1.6 mg/dl (1.7-2.4); Phosphorus 3.5 mg/dl (2.5-4.9); Potassium 4.7 mmol/L (3.5-5.1); Total Protein 6.3 gm/dl (6.0-8.3)
[2022-03-09] MEDS ORDERED: MAGNESIUM SULFATE / D5W 1 GM/100 ML BAG IV ONE (10:23)
--- NOTE | 2022-03-09 12:50 | Hospitalist Progress Note ---
Date of Service March 09, 2022 Assessment & Plan (1) Weakness: Plan: This is a 62-year-old male who presents with ambulatory dysfunction. 1. Ambulatory dysfunction: The patient was recently in the [facility] for alcoholism and ambulatory dysfunction. The workup was negative as per family. We will get physical therapy and occupational therapy evaluation. PT eval pending Possible deconditioning related to alcoholism and also if any concern, we will get imaging studies of the back and also of head. Monitor in the hospital. 2. Alcoholism: recently was in [facility], -he was treated for alcoholism and hyponatremia as per the family and since coming home last Saturday, he is not drinking. -We will continue with p.o. thiamine, folic acid, multivitamins and place him on IV Ativan p.r.n. for now and monitor. Questionable aspiration -Patient is coughing when drinking liquids -Chest x-ray negative -We will obtain speech eval 3. Hypertension: Continue his lisinopril. 4. History of gout: Continue allopurinol. 5. Anemia: Hemoglobin of 8.9. We will follow Hemoccult studies and we will get iron studies, vitamin B12, and folate levels. B12, folate level normal 6. Elevated liver function studies: Possibly from alcoholism. Follow the repeat laboratories. LFTs trending down/plateaued No abdominal/right upper quadrant pain on physical exam gallbladder ultrasound shows hepatomegaly and hepatic steatosis. We will monitor. If any concern, we will get gastrointestinal consult. DVT prophylaxis: Lovenox for now. DISPOSITION: Closely monitor in the medical floor. PT/OT. Social Service to help with discharge planning. Admission and Anticipated Discharge Date Admission Date: March 07, 2022 Subjective Patient seen in follow-up of weakness/ambulatory dysfunction Patient currently sitting up in chair, in no acute distress Denies any fevers, chills, chest pain, shortness of breath, abdomen, nausea vomiting Patient feels weak Awaiting PT evaluation Speech eval ordered as well, as patient is coughing with any sips of liquid Family/son-in-law at the bedside yesterday and updated Review of Systems Review of Systems: All systems reviewed & are unremarkable except as noted in Subjective Physical Exam Physical Exam: GENERAL: The patient is of moderate build, not in acute distress. HEENT: NC/AT. EOMI. Pupils equal, round and reactive to light. Oral mucosa moist. NECK: No JVD, no neck masses. CARDIOVASCULAR: S1 and S2 heard. Regular rate and rhythm. No murmur, no gallop. RESPIRATORY SYSTEM: Normal AP diameter. No accessory muscle use. No wheezing, no crackles. ABDOMEN: Soft. Bowel sounds are present, nontender, no distention. CENTRAL NERVOUS SYSTEM:Awake and alert, answers most questions appropriately, speech fluent, no facial asymmetry, moves extremities, gait not tested EXTREMITIES: trace lower extremity edema R>L present (much improved). Results & Data Results & Data ([facility]) Vital Signs (Past 12 Hours) Vital Signs Temp Pulse Resp BP Pulse Ox 03/09/22 07:44 36.8 C 86 17 103/66 98 Laboratory Results 03/09/22 03/09/22 Range/Units 08:41 08:41 WBC 6.38 (4.8-10.8) K/uL RBC 2.60 L (4.7-6.1) M/uL Hgb 9.1 L (14.0-18.0) g/dL Hct 28.6 L (42-52) % MCV 110.0 H (80-100) fL MCH 35.0 H (25-34) pg MCHC 31.8 L (32-36) g/dL RDW Std Deviation 62.6 H (36.4-46.3) fL RDW Coeff of Gage 15.6 H (11.5-14.5) % Plt Count 201 (130-400) K/uL MPV 9.3 (7.4-10.4) fL Sodium 139 (136-145) mmol/L Potassium 4.7 (3.5-5.1) mmol/L Chloride 112 H (98-107) mmol/L Carbon Dioxide 20 L (21-32) mmol/L Anion Gap 7 (3-11) BUN 22 (6-23) mg/dl Creatinine 1.10 (0.6-1.4) mg/dl Est Cr Clr Drug Dosing 67.2 ml/min Est GFR ( Amer) 82.4 ml/min Est GFR (Non-Af Amer) 71.1 ml/min BUN/Creatinine Ratio 20.0 (10-20) Glucose 96 (70-99(Fasting)) mg/dl Calcium 8.8 (8.5-10.1) mg/dl Phosphorus 3.5 (2.5-4.9) mg/dl Magnesium 1.6 L (1.7-2.4) mg/dl Total Bilirubin 1.4 H (0.2-1.0) mg/dl AST 87 H (13-39) U/L ALT 68 H (7-52) U/L Alkaline Phosphatase 223 H (34-104) U/L Total Protein 6.3 (6.0-8.3) gm/dl Albumin 3.2 L (3.4-5.0) gm/dl Globulin 3.1 (2.5-4.0) gm/dl Albumin/Globulin Ratio 1.0 (0.9-2) Medications Administered Current Inpatient Medications Allopurinol (Allopurinol 300 Mg Tab) 300 mg PO [facility] Stop: 04/07/22 08:59 Last Admin: 03/09/22 08:36 Dose: 300 mg Documented by: Enoxaparin Sodium (Enoxaparin Inj 40 Mg/0.4 Ml Syr) 40 mg SQ [facility] Stop: 04/06/22 22:59 Last Admin: 03/08/22 21:44 Dose: 40 mg Documented by: Folic Acid (Folic Acid 1 Mg Tab) 1 mg PO [facility] Stop: 04/07/22 08:59 Last Admin: 03/09/22 08:36 Dose: 1 mg Documented by: Lisinopril (Lisinopril 10 Mg Tab) 30 mg PO [facility] Stop: 04/07/22 08:59 Last Admin: 03/09/22 08:36 Dose: 30 mg Documented by: Lorazepam (Lorazepam 2 Mg/1 Ml Vial) 0.5 mg IV Q4H PRN; Protocol PRN Reason: Anxiety/Agitation Stop: 04/06/22 22:31 Multivitamins/Minerals (Cerovite Adv Formula Tab) 1 tab PO [facility] Stop: 04/07/22 08:59 Last Admin: 03/09/22 08:36 Dose: 1 tab Documented by: Ondansetron HCl (Ondansetron Inj 2 Mg/Ml 2 Ml Vial) 4 mg IV Q6H PRN PRN Reason: Nausea Stop: 04/06/22 22:31 Polyethylene Glycol (Polyethylene (Miralax) 17 Gm Pack) 17 gm PO DAILY PRN PRN Reason: Constipation Stop: 04/06/22 22:31 Thiamine HCl (Thiamine Hcl 100 Mg Tab) 100 mg PO [facility] Stop: 04/07/22 08:59 Last Admin: 03/09/22 08:36 Dose: 100 mg Documented by:
--- NOTE | 2022-03-09 14:35 | Fluoroscopy Report ---
FL video swallow CLINICAL HISTORY: 62 years-old Male with dysphagia with oral intake. TECHNIQUE: Video fluoroscopic evaluation of swallowing was performed in the AP and lateral projection s by the speech pathology staff. The patient is fed thin liquid, mildly thick, pudding and cracker wi th paste consistencies. FLUOROSCOPY TIME: 5 minutes. COMPARISON STUDY: None. FINDINGS: Aspiration with thin liquid barium. Vallecular retention is noted with pudding consistency. Moderate intervertebral disc space narrowing incidentally noted at C3-C4 with associated spondylitic spurring. Decreased oropharyngeal transit with solid consistency. IMPRESSION: 1. Aspiration with thin liquid barium. 2. Please see the speech pathologist report for detailed findings and recommendations. ACT 112: Negative or not required by law. Electronically signed by: Hay Chan M.D. 03/09/2022 2:34 PM
--- NOTE | 2022-03-09 16:18 | Neurology Consultation ---
Date of Consultation March 09, 2022 Assessment & Plan (1) Weakness: 1. needs MRI brain with and without 2. PT/OT speech for discharge needs 3. start thiamine 200 mg TID for at least 5 days and then 100 mg daily there after 4. ammonia level if not already done 5. B12, folate supplement due to MCV 6. out patient EMG for peripheral neuropathy work up 7. will continue to follow with you (2) Swallowing difficulty: 1. failed swallowing study for thin liquids Supervising Physician Co-Signing Physician Notes I have seen and discussed above patient with Dr Yessi Malik, neurology. Pt seen and examined, hx complex. 6 month hx of gradual decline in gait, dysphagia, tremor. significant etoh intake 1/2 gallon vodka q 2.5 d. Admitted for same to [facility] for etoh withdrawl, likely given B12 folate, thiamine. Sent home without rehab. Pt did not worsen but could not consistent help him to ambulate. No cog diff, no cramps, no incont. ) x 3, memory 2/3 at 3 min. facial masking, mild dec L NLF, mild hypophonia, no tongue atrophy, dec gag bl. Rest tremor R withcogwheel, Intention tremor, atrophy bl fdi with moderate wekaness., without other atrophy. mild diffuse weakness, intact mildly brisk reflexes. R AJ 1+, left trace, Vibration at ankles.Diff arising from chair. gait narrow based, festinating increased steps per turn. Apparent PD. MRI brain r/o NPH. B12, folate and thiamine supplementation. Likely pn, likely related to ETOH. bl FDI atrophy. I did not appreciate other atrophy. Rec ncv emg bl ue as outpt. I dont see evidency of a myopathic disorder or other signs anterior horn cell disease Discussed with family trying Sinemet, mildly hesistant Pt will need inpt rehab. Will follow with you. History of Present Illness Reason for Consultation: weakness, +onset of dysphagia Requesting Physician: Polo Santo MD Attending Physician: Polo Santo MD History of Present Illness Vincent is a 62 year old male with PMH- gout, HTN, alcoholism, presents to [facility] ED 03/07/2022 with ambulatory dysfunction. was recently in [facility] for alcoholism, ambulatory dysfunction, lower extremity swelling. As per family, all the workup was negative and he was there for 1 week and was treated for alcohol withdrawal and discharged last Saturday. He lives with his . At [facility], he was ambulating with a walker, but since coming home, he is not able to ambulate anything at all, not able to get up from the bed, that is why the brought him to the hospital for further physical therapy. He used to drink vodka 1 gallon every 2 days before he got admitted to [facility], but since he came home, he is not drinking. Daughter is in the room and advised he will be going to rehab prior to returning home which she felt he needed at discharge from [facility]. He was not discharged on thiamine. denies CP, SOB, abdominal pain, N, V. swallowing ok but feels it is getting stuck with dry foods. Allergies Allergy/AdvReac Type Severity Reaction Status Date / Time No Known Allergies Allergy Unverified 03/07/22 17:14 Home Medications Medication Instructions Recorded Confirmed Type allopurinol 300 mg tablet 300 mg PO QAM 03/07/22 03/07/22 History chlordiazepoxide HCl 25 mg capsule 25 mg PO TID PRN 03/07/22 03/07/22 History dexamethasone 4 mg tablet 4 mg PO QAM 03/07/22 03/07/22 History (Decadron) lisinopril 30 mg tablet 30 mg PO QAM 03/07/22 03/07/22 History Patient History Social History Smoking Status: Never smoker Tobacco Type: E-cigarettes / Vaping Hx Alcohol Use: Yes Alcohol type: beer Hx Substance Use: No Preferred Language: Turkmen Communication Ability: Effective Emergency Department Technician Required: No Beliefs That Will Affect Care: None marital status: Current Living Situation: Spouse and Family Current Living Situation Comment: Pt reported living with spouse and son How many Children do You have: 1 Other Information That Helps Us Care for You: No Feels Safe at Home: Yes Safety Concerns: Feels Safe At This Time Assistive Devices: Walker Assistive Devices Comment: bdside commode Review of Systems Review of Systems: All systems reviewed & are unremarkable except as noted in HPI & below Physical Exam Physical Exam: Physical Exam: Constitutional: appearance nourish, disheveled Ears, Nose, Mouth and Throat: mucous membranes moist, no injection and skin normal, eyes normal Cardiovascular: normal S-1 and S-2 and regular rate and rhythm Respiratory: course breath sounds Musculoskeletal: slight swelling in right LE good distal pulses Skin: no stigmata of neurocutaneous disease noted and normal and intact Eyes: extraocular muscles intact (EOMI) and pupils equal, round and reactive to light (PERRL) NEUROLOGIC EXAMINATION: Mental status: Alert and interactive Oriented to full date and location, [facility] thinks it is the 8th but knows it is [place] Oriented to person Speech no slurred speech Cranial Nerves slight facial asymmetry Reflexes: Deep tendon reflexes were symmetrical and graded 2/5. Sensory: decreased with vibration, GT proprioception absent Coordination: finger to nose with slight reaching tremor Gait/Stance: Posture normal sitting in bedside chair Motor: Negative for pronator drift of out stretched arms with eyes closed. no hand flap Strength: hand newspaper copy editor biceps triceps bilaterally 5/5, hip flex 4+/5, patellar flex ext 4+/5, plantar flex ext 5/5 Results & Data ([facility]) Vital Signs (Past 12 Hours) Vital Signs Temp Pulse Resp BP Pulse Ox 03/09/22 14:29 36.3 C L 92 H 17 103/67 100 03/09/22 07:44 36.8 C 86 17 103/66 98 Laboratory Results Abnormal lab results 03/09/22 03/09/22 Range/Units 08:41 08:41 RBC 2.60 L (4.7-6.1) M/uL Hgb 9.1 L (14.0-18.0) g/dL Hct 28.6 L (42-52) % MCV 110.0 H (80-100) fL MCH 35.0 H (25-34) pg MCHC 31.8 L (32-36) g/dL RDW Std Deviation 62.6 H (36.4-46.3) fL RDW Coeff of Gage 15.6 H (11.5-14.5) % Chloride 112 H (98-107) mmol/L Carbon Dioxide 20 L (21-32) mmol/L Magnesium 1.6 L (1.7-2.4) mg/dl Total Bilirubin 1.4 H (0.2-1.0) mg/dl AST 87 H (13-39) U/L ALT 68 H (7-52) U/L Alkaline Phosphatase 223 H (34-104) U/L Albumin 3.2 L (3.4-5.0) gm/dl Diagnostic Findings no neurologic imaging
[2022-03-09] MEDS: ENOXAPARIN INJ 40 MG/0.4 ML SYR SQ SCH (20:12)
--- NOTE | 2022-03-10 07:14 | Hospitalist Progress Note ---
Date of Service March 10, 2022 Assessment & Plan (1) Weakness: Plan: This is a 62-year-old male who presents with ambulatory dysfunction. 1. Ambulatory dysfunction: The patient was recently in the [facility] for alcoholism and ambulatory dysfunction. The workup was negative as per family. We will get physical therapy and occupational therapy evaluation. PT eval -recommends rehab Possible deconditioning related to alcoholism Neurology also consulted, brain MRI ordered today IMPRESSION: Chronic age-related changes without evidence of acute infarct or hydrocephalus. Routine MRI brain is not sensitive for findings of Parkinson's disease. If clinical concern remains, Sundar scan or dedicated Parkinson's MRI with 3-D susceptibility weighted sequence of the substantia nigra can be performed. Dysphagia -Patient is coughing when drinking liquids -Chest x-ray negative -obtained speech eval - Aspiration with thin liquid barium. Patient has severe oropharyngeal dysphagia 2. Alcoholism: recently was in [facility], -he was treated for alcoholism and hyponatremia as per the family and since coming home last Saturday, he is not drinking. -We will continue with p.o. thiamine, folic acid, vitamin B12 , multivitamins and place him on IV Ativan p.r.n. for now and monitor. 3. Hypertension: Continue his lisinopril. 4. History of gout: Continue allopurinol. 5. Anemia: Hemoglobin of 8.9. We will follow Hemoccult studies and we will get iron studies, vitamin B12, and folate levels. B12, folate level normal 6. Elevated liver function studies: Possibly from alcoholism. Follow the repeat laboratories. LFTs trending down/plateaued No abdominal/right upper quadrant pain on physical exam gallbladder ultrasound shows hepatomegaly and hepatic steatosis. We will monitor. If any concern, we will get gastrointestinal consult. DVT prophylaxis: Lovenox for now. DISPOSITION: Closely monitor in the medical floor. PT/OT. Social Service to help with discharge planning. Admission and Anticipated Discharge Date Admission Date: March 07, 2022 Subjective Patient seen in follow-up of weakness/ambulatory dysfunction Patient currently sitting up in chair, in no acute distress Denies any fevers, chills, chest pain, shortness of breath, abdomen, nausea vomiting Patient feels weak Speech eval obtained as well, as patient is coughing with any sips of liquid Neurology consulted - brain mri today Review of Systems Review of Systems: All systems reviewed & are unremarkable except as noted in Subjective Physical Exam Physical Exam: GENERAL: The patient is of moderate build, not in acute distress. HEENT: NC/AT. EOMI. Pupils equal, round and reactive to light. Oral mucosa moist. NECK: No JVD, no neck masses. CARDIOVASCULAR: S1 and S2 heard. Regular rate and rhythm. No murmur, no gallop. RESPIRATORY SYSTEM: Normal AP diameter. No accessory muscle use. No wheezing, no crackles. ABDOMEN: Soft. Bowel sounds are present, nontender, no distention. CENTRAL NERVOUS SYSTEM:Awake and alert, answers most questions appropriately, speech fluent, no facial asymmetry, moves extremities, gait not tested EXTREMITIES: trace lower extremity edema R>L present (much improved). Results & Data Results & Data ([facility]) Vital Signs (Past 12 Hours) Vital Signs Temp Pulse Resp BP Pulse Ox 03/10/22 00:14 37.6 C H 102 H 19 108/66 99 Laboratory Results 03/10/22 03/10/22 Range/Units 07:25 07:25 Sodium 136 (136-145) mmol/L Potassium 4.0 (3.5-5.1) mmol/L Chloride 107 (98-107) mmol/L Carbon Dioxide 22 (21-32) mmol/L Anion Gap 7 (3-11) BUN 28 H (6-23) mg/dl Creatinine 1.60 H D (0.6-1.4) mg/dl Est Cr Clr Drug Dosing 46.2 ml/min Est GFR ( Amer) 52.4 ml/min Est GFR (Non-Af Amer) 45.2 ml/min BUN/Creatinine Ratio 17.5 (10-20) Glucose 159 H (70-99(Fasting)) mg/dl Calcium 8.5 (8.5-10.1) mg/dl Phosphorus 3.1 (2.5-4.9) mg/dl Magnesium 1.7 (1.7-2.4) mg/dl Ammonia 31.0 (18-72) umol/L Medications Administered Current Inpatient Medications Allopurinol (Allopurinol 300 Mg Tab) 300 mg PO QAM [facility] Stop: 04/07/22 08:59 Last Admin: 03/09/22 08:36 Dose: 300 mg Documented by: Cyanocobalamin (Cyanocobalamin (B-12) 500 Mcg Tablet) 1,000 mcg PO QAM [facility] Stop: 04/09/22 08:59 Enoxaparin Sodium (Enoxaparin Inj 40 Mg/0.4 Ml Syr) 40 mg SQ HS [facility] Stop: 04/06/22 22:59 Last Admin: 03/09/22 20:12 Dose: 40 mg Documented by: Folic Acid (Folic Acid 1 Mg Tab) [facility] [place] Stop: 04/07/22 08:59 Last Admin: 03/09/22 08:36 Dose: 1 mg Documented by: Lisinopril (Lisinopril 10 Mg Tab) 30 [facility] [place] Stop: 04/07/22 08:59 Last Admin: 03/09/22 08:36 Dose: 30 mg Documented by: Lorazepam (Lorazepam 2 Mg/1 Ml Vial) 0.5 mg IV Q4H PRN; Protocol PRN Reason: Anxiety/Agitation Stop: 04/06/22 22:31 Multivitamins/Minerals (Cerovite Adv Formula Tab) 1 tab PO [facility] Stop: 04/07/22 08:59 Last Admin: 03/09/22 08:36 Dose: 1 tab Documented by: Ondansetron HCl (Ondansetron Inj 2 Mg/Ml 2 Ml Vial) 4 mg IV Q6H PRN PRN Reason: Nausea Stop: 04/06/22 22:31 Polyethylene Glycol (Polyethylene (Miralax) 17 Gm Pack) 17 gm PO DAILY PRN PRN Reason: Constipation Stop: 04/06/22 22:31 Thiamine HCl (Thiamine Hcl 100 Mg Tab) 200 mg PO TID [facility] Stop: 04/08/22 16:44 Last Admin: 03/09/22 20:12 Dose: 200 mg Documented by:
[2022-03-10 07:59] LABS: BUN Creatinine Ratio 17.5 (10-20); Calcium 8.5 mg/dl (8.5-10.1); Creatinine Clr Calc Pharmacy 46.2 ml/min; Est GFR (African American) 52.4 ml/min; Est GFR (Non-African American) 45.2 ml/min; Magnesium 1.7 mg/dl (1.7-2.4); Phosphorus 3.1 mg/dl (2.5-4.9)
[2022-03-10] MEDS: CEROVITE ADV FORMULA TAB PO SCH (08:09)
[2022-03-10] MEDS: allopurinoL 300 MG TAB PO SCH (08:09)
[2022-03-10] MEDS: THIAMINE HCL 100 MG TAB PO SCH ×3 (08:09→20:57)
[2022-03-10] MEDS: lisinopril 10 MG TAB PO SCH (08:09)
[2022-03-10] MEDS: FOLIC ACID 1 MG TAB PO SCH (08:10)
[2022-03-10] MEDS: CYANOCOBALAMIN (B-12) 500 MCG TABLET PO SCH (09:33)
[2022-03-10] MEDS: LORazepam 2 MG/1 ML VIAL IV PRN (11:00)
--- NOTE | 2022-03-10 11:15 | Progress Notes ---
DATE OF NOTE: 03/10/2022 SUBJECTIVE: I am seeing the patient in followup of gait dysfunction. He has had a recent extended h ospitalization for generalized weakness at [facility]. He was prophylaxed for alcohol withdrawal and went home on Saturday, not any worse than it had been, but certainly needed more rehabilitation and could n ot be managed by his at home. When I saw him yesterday, I noted atrophy of the bilateral FDIs w ith associated weakness, some mild generalized weakness, some resting tremor, facial masking, cogwhee l rigidity and a stooped gait with difficulty with initiation and some festinating gait. He appeared parkinsonian. MRI was not ordered, but I have ordered this morning after discussing with the patien t's . PHYSICAL EXAMINATION: On today's exam he is awake and alert. He is noticing some itching, which I c onfirmed with his preceded his hospitalization and was thought by the hospital team at [facility] re lated to liver dysfunction. There is a decreased facial animation, decreased blink frequency. There is some resting tremor with some cogwheel rigidity with reinforcement, the resting tremors, right gr eater than left. There is a tremor with intention and he has moderately bradykinetic. IMPRESSION: This patient has a complex neurologic history, but has had gradually progressive gait dy sfunction over 6 months or so with bradykinesia and appears to have Parkinson's disease among potenti al other etiologies. PLAN: MRI of the brain, rule out NPH multiple strokes. I discussed with the family starting levodop a/carbidopa and they have some hesitancy about doing so. Although I pointed out to them that it woul d probably be best for a trial while he was monitored and certainly may positively impact his recover y and rehabilitation. He does remain mildly generally weaker than I would normally expect. He has s ome atrophy of the FDIs without any clear ulnar sensory loss. He does have relatively intact reflexe s considering his alcohol history. He needs an outpatient nerve conduction EMG of the bilateral uppe rs and perhaps one lower extremity to make sure there is nothing more then a sensory motor polyneurop athy with possible superimposed bilateral ulnar neuropathies. Again, please see prior recommendation s regarding thiamine supplementation, B12 and folate. I would also check a CK, if not already done. We will follow with you. Job ID: [id number]
[2022-03-10] MEDS ORDERED: GADOBUTROL 30ML VIAL IV ONE (12:07)
--- NOTE | 2022-03-10 13:12 | Magnetic Resonance Report ---
MR brain wo/w con CLINICAL HISTORY: Weakness with difficulty ambulating. Concern for infarct versus hydrocephalus. TECHNIQUE: Multiplanar and multisequence MR images of the brain were obtained prior to and following administration of gadolinium contrast. Comparison: None available at the time of this dictation. FINDINGS: Exam is limited by patient motion. No abnormal restricted diffusion is identified. Foci of T2 and FLA IR hyperintensity are noted in the paraventricular areas consistent with chronic small vessel ischemi c disease. Ex vacuo ventriculomegaly and sulcal enlargement is noted compatible with diffuse encephal omalacia. No enlargement out of proportion to sulcal atrophy is seen to suggest hydrocephalus. No mas s or abnormal enhancement is seen. There is no mass effect or midline shift. There is no evidence of acute intraparenchymal hemorrhage. No extra axial fluid collections are seen. The corpus callosum, pi tuitary gland, and cerebellar tonsils appear grossly unremarkable. Flow voids of the major intracranial arterial vessels are identified. The imaged portions of the para nasal sinuses, mastoid air cells, and orbits are unremarkable. IMPRESSION: Chronic age-related changes without evidence of acute infarct or hydrocephalus. Routine MRI brain is not sensitive for findings of Parkinson's disease. If clinical concern remains, Sundar scan or dedicated Parkinson's MRI with 3-D susceptibility weighted sequence of the substantia nigra can be performed. ACT 112: Negative or not required by law. Electronically signed by: Sunil Oviedo M.D. 03/10/2022 1:11 PM
[2022-03-10] MEDS ORDERED: SODIUM CHLORIDE 0.9% 500 ML IV SCH (13:30)
[2022-03-10] MEDS ORDERED: MAGNESIUM SULFATE / D5W 1 GM/100 ML BAG IV ONE (15:49)
[2022-03-10] MEDS: SODIUM CHLORIDE 0.9% 1000ML 1,000 ML IV SCH (16:34)
[2022-03-10] MEDS: ENOXAPARIN INJ 40 MG/0.4 ML SYR SQ SCH (20:56)
[2022-03-11] MEDS: SODIUM CHLORIDE 0.9% 1000ML 1,000 ML IV SCH ×2 (00:38→07:11)
[2022-03-11] MEDS ORDERED: diphenhydrAMINE Capsule 25 MG CAP PO ONE (03:26)
[2022-03-11] MEDS: LORazepam 2 MG/1 ML VIAL IV PRN (03:41)
[2022-03-11 06:22] LABS: BUN Creatinine Ratio 21.7 (10-20); Calcium 8.1 mg/dl (8.5-10.1); Creatinine Clr Calc Pharmacy 61.6 ml/min; Est GFR (African American) 74.1 ml/min; Magnesium 1.8 mg/dl (1.7-2.4); Phosphorus 3.4 mg/dl (2.5-4.9); Potassium 4.3 mmol/L (3.5-5.1)
[2022-03-11] MEDS: CYANOCOBALAMIN (B-12) 500 MCG TABLET PO SCH (08:42)
[2022-03-11] MEDS: allopurinoL 300 MG TAB PO SCH (08:42)
[2022-03-11] MEDS: THIAMINE HCL 100 MG TAB PO SCH ×3 (08:42→20:39)
[2022-03-11] MEDS: CEROVITE ADV FORMULA TAB PO SCH (08:42)
[2022-03-11] MEDS: FOLIC ACID 1 MG TAB PO SCH (08:42)
[2022-03-11] MEDS: lisinopril 10 MG TAB PO SCH (08:43)
--- NOTE | 2022-03-11 10:41 | Hospitalist Progress Note ---
Date of Service March 11, 2022 Assessment & Plan (1) Weakness: Plan: This is a 62-year-old male who presents with ambulatory dysfunction. 1. Ambulatory dysfunction: The patient was recently in the [facility] for alcoholism and ambulatory dysfunction. The workup was negative as per family. We will get physical therapy and occupational therapy evaluation. PT eval -recommends rehab Possible deconditioning related to alcoholism Neurology also consulted, brain MRI obatained IMPRESSION: Chronic age-related changes without evidence of acute infarct or hydrocephalus. Routine MRI brain is not sensitive for findings of Parkinson's disease. If clinical concern remains, Sundar scan or dedicated Parkinson's MRI with 3-D susceptibility weighted sequence of the substantia nigra can be performed. Per neurology, given weakness and dysphagia, physical exam (resting tremor, cogwheel rigidity, bradykinesia, masked facies, postural instability), likely consistent with parkinsonism. Trial of carbidopa/levodopa. Plan for EMG studies and neurology follow-up as outpatient. Continue thiamine, folic acid, B12 Dysphagia -Patient is coughing when drinking liquids -Chest x-ray negative -obtained speech eval - Aspiration with thin liquid barium. Patient has severe oropharyngeal dysphagia, needs cont. speech therapy 2. Alcoholism: recently was in [facility], -he was treated for alcoholism and hyponatremia as per the family and since coming home last Saturday, he is not drinking. -We will continue with p.o. thiamine, folic acid, vitamin B12 , multivitamins and place him on IV Ativan p.r.n. for now and monitor. 3. Hypertension: Continue his lisinopril. 4. History of gout: Continue allopurinol. 5. Anemia: Hemoglobin of 8.9. We will follow Hemoccult studies and we will get iron studies, vitamin B12, and folate levels. B12, folate level normal Given elevated MCV -continue folic acid, B12 supplementation 6. Elevated liver function studies: Possibly from alcoholism. Follow the repeat laboratories. LFTs trending down/plateaued No abdominal/right upper quadrant pain on physical exam gallbladder ultrasound shows hepatomegaly and hepatic steatosis. We will monitor. If any concern, we will get gastrointestinal consult. DVT prophylaxis: Lovenox for now. DISPOSITION: Closely monitor in the medical floor. PT/OT. Social Service to help with discharge planning. Admission and Anticipated Discharge Date Admission Date: March 07, 2022 Subjective Patient seen in follow-up of weakness/ambulatory dysfunction Patient currently sitting up in bed, in no acute distress Denies any fevers, chills, chest pain, shortness of breath, abdomen, nausea vomiting Patient feels weak Speech eval obtained as well, as patient is coughing with any sips of liquid Severe oropharyngeal dysphagia noted Neurology consulted and following, appreciate their input Review of Systems Review of Systems: All systems reviewed & are unremarkable except as noted in Subjective Physical Exam Physical Exam: GENERAL: The patient is of moderate build, not in acute distress. HEENT: NC/AT. EOMI. Pupils equal, round and reactive to light. Oral mucosa moist. NECK: No JVD, no neck masses. CARDIOVASCULAR: S1 and S2 heard. Regular rate and rhythm. No murmur, no gallop. RESPIRATORY SYSTEM: Normal AP diameter. No accessory muscle use. No wheezing, no crackles. ABDOMEN: Soft. Bowel sounds are present, nontender, no distention. CENTRAL NERVOUS SYSTEM:Awake and alert, answers simple questions appropriately, no facial asymmetry, moves extremities, gait not tested EXTREMITIES: trace lower extremity edema R>L present (much improved). Results & Data Results & Data ([facility]) Vital Signs (Past 12 Hours) Vital Signs Temp Pulse Resp BP Pulse Ox 03/11/22 07:05 37 C 88 20 97/59 L 96 Laboratory Results 03/11/22 Range/Units 05:23 Sodium 139 (136-145) mmol/L Potassium 4.3 (3.5-5.1) mmol/L Chloride 113 H (98-107) mmol/L Carbon Dioxide 19 L (21-32) mmol/L Anion Gap 7 (3-11) BUN 26 H (6-23) mg/dl Creatinine 1.20 D (0.6-1.4) mg/dl Est Cr Clr Drug Dosing 61.6 ml/min Est GFR ( Amer) 74.1 ml/min Est GFR (Non-Af Amer) 64.0 ml/min BUN/Creatinine Ratio 21.7 H (10-20) Glucose 90 (70-99(Fasting)) mg/dl Calcium 8.1 L (8.5-10.1) mg/dl Phosphorus 3.4 (2.5-4.9) mg/dl Magnesium 1.8 (1.7-2.4) mg/dl Total Creatine Kinase 32 (30-223) U/L Medications Administered Current Inpatient Medications Allopurinol (Allopurinol 300 Mg Tab) 300 mg PO [facility] Stop: 04/07/22 08:59 Last Admin: 03/11/22 08:42 Dose: 300 mg Documented by: Cyanocobalamin (Cyanocobalamin (B-12) 500 Mcg Tablet) 1,[facility] [place] Stop: 04/09/22 08:59 Last Admin: 03/11/22 08:42 Dose: 1,000 mcg Documented by: Enoxaparin Sodium (Enoxaparin Inj 40 Mg/0.4 Ml Syr) 40 mg SQ HS [facility] Stop: 04/06/22 22:59 Last Admin: 03/10/22 20:56 Dose: 40 mg Documented by: Folic Acid (Folic Acid 1 Mg Tab) [facility] [place] Stop: 04/07/22 08:59 Last Admin: 03/11/22 08:42 Dose: 1 mg Documented by: Sodium Chloride (Nss 1000ml) 1,000 mls @ 150 mls/hr IV .Q6H40M [facility] Stop: 04/09/22 15:29 Last Admin: 03/11/22 07:11 Dose: 150 mls/hr Documented by: Lisinopril (Lisinopril 10 Mg Tab) 30 mg PO [facility] Stop: 04/07/22 08:59 Last Admin: 03/11/22 08:43 Dose: Not Given Documented by: Lorazepam (Lorazepam 2 Mg/1 Ml Vial) 0.5 mg IV Q4H PRN; Protocol PRN Reason: Anxiety/Agitation Stop: 04/06/22 22:31 Last Admin: 03/11/22 03:41 Dose: 0.5 mg Documented by: Multivitamins/Minerals (Cerovite Adv Formula Tab) 1 tab PO [facility] Stop: 04/07/22 08:59 Last Admin: 03/11/22 08:42 Dose: 1 tab Documented by: Ondansetron HCl (Ondansetron Inj 2 Mg/Ml 2 Ml Vial) 4 mg IV Q6H PRN PRN Reason: Nausea Stop: 04/06/22 22:31 Polyethylene Glycol (Polyethylene (Miralax) 17 Gm Pack) 17 gm PO DAILY PRN PRN Reason: Constipation Stop: 04/06/22 22:31 Thiamine HCl (Thiamine Hcl 100 Mg Tab) 200 mg PO TID [facility] Stop: 04/08/22 16:44 Last Admin: 03/11/22 08:42 Dose: 200 mg Documented by:
--- NOTE | 2022-03-11 12:47 | Progress Notes ---
DATE OF NOTE: 03/11/2022 SUBJECTIVE: I am seeing the patient again in followup of weakness. 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 There are some atypical features and that he has some atrophy in his hands and he is mildly generally weak and there is early dysphagia. His MRI of the brain shows mild chronic vascular changes and atrophy out of proportion to age. PHYSICAL EXAMINATION: On today's examination. He is awake, alert, hypophonic. There is a resting t remor and decreased blink frequency. Gait was not tested. IMPRESSION AND PLAN: This patient has a history of heavy alcohol use, which he discontinued at the t omar of the hospitalization. His gait has not improved. MRI of the brain is noncontributory. Exam s hows some atrophy of the FDIs, which may represent an ulnar neuropathy at the elbow. Given his dysph agia, the only atrophy being in the hands and generalized weakness. I would recommend a nerve conduc tion EMG. I have also taken the liberty to order a CK. I think there are many features of Parkinson 's disease and they include resting tremor, cogwheel rigidity, bradykinesia, masked facies, postural instability. With his 's permission and the patient's permission, we will empirically try him on some levodopa/carbidopa. We discussed potential side effects. We will see how he does with rehabil itation and some levodopa/carbidopa on board. Of course, we will see what the results of the nerve c onduction EMG are. If it remains unclear as to the diagnosis, we certainly could have him have a Sundar scan as an outpatient and that would be our plan. The patient reports some slowed thinking. His la bs before vitamin supplementation including a B12 and folate were not known to this examiner. His MC V is rather large. It is elevated at 110. Continue B12, folate, thiamine supplementation. If there are ongoing cognitive issues we will undertake a more extensive workup. I think the patient would be nefit from inpatient therapy. Post-discharge, he should see me in followup and a nerve conduction EM G arranged. Job ID: [id number]
[2022-03-11] MEDS: CARBIDOPA/LEVODOPA 25/100MG TAB PO SCH (16:06)
[2022-03-11] MEDS: ENOXAPARIN INJ 40 MG/0.4 ML SYR SQ SCH (20:40)
[2022-03-12] MEDS ORDERED: diphenhydrAMINE Capsule 25 MG CAP PO ONE (00:48)
[2022-03-12] MEDS ORDERED: diphenhydrAMINE Capsule 25 MG CAP ONE (01:05)
--- NOTE | 2022-03-12 07:16 | Hospitalist Progress Note ---
Date of Service March 12, 2022 Assessment & Plan (1) Weakness: Plan: This is a 62-year-old male who presents with ambulatory dysfunction. 1. Ambulatory dysfunction: The patient was recently in the [facility] for alcoholism and ambulatory dysfunction. The workup was negative as per family. We will get physical therapy and occupational therapy evaluation. PT eval -recommends rehab Possibledeconditioning related to alcoholism Neurology also consulted, brain MRI obatained IMPRESSION: Chronic age-related changes without evidence of acute infarct or hydrocephalus. Routine MRI brain is not sensitive for findings of Parkinson's disease. If clinical concern remains, Sundar scan or dedicated Parkinson's MRI with 3-D susceptibility weighted sequence of the substantia nigra can be performed. Per neurology, given weakness and dysphagia, physical exam (resting tremor, cogwheel rigidity, bradykinesia, masked facies, postural instability), likely consistent with parkinsonism. Trial of carbidopa/levodopa. Plan for EMG studies and neurology follow-up as outpatient. Continue thiamine, folic acid, B12 Dysphagia -Patient is coughing when drinking liquids -Chest x-ray negative -obtained speech eval - Aspiration with thin liquid barium. Patient has severe oropharyngeal dysphagia, needs cont. speech therapy 2. Alcoholism: recently was in [facility], -he was treated for alcoholism and hyponatremia as per the family and since coming home last Saturday, he is not drinking. -We will continue with p.o. thiamine, folic acid, vitamin B12 , multivitamins and place him on IV Ativan p.r.n. for now and monitor. 3. Hypertension: Continue his lisinopril. 4. History of gout: Continue allopurinol. 5. Anemia: Hemoglobin of 8.9. We will follow Hemoccult studies and we will get iron studies, vitamin B12, and folate levels. B12, folate level normal Given elevated MCV -continue folic acid, B12 supplementation 6. Elevated liver function studies: Possibly from alcoholism. Follow the repeat laboratories. LFTs trending down/plateaued No abdominal/right upper quadrant pain on physical exam gallbladder ultrasound shows hepatomegaly and hepatic steatosis. We will monitor. If any concern, we will get gastrointestinal consult. DVT prophylaxis: Lovenox for now. DISPOSITION: Closely monitor in the medical floor. PT/OT. Social Service to help with discharge planning. Admission and Anticipated Discharge Date Admission Date: March 07, 2022 Subjective Patient seen in follow-up of weakness/ambulatory dysfunction Patient currently sitting up in chair, in no acute distress Denies any fevers, chills, chest pain, shortness of breath, abdomen, nausea vomiting Today patient is more tremulous in his arms, and more anxious. He thinks that he has been in the hospital for 3 weeks. He is also more responsive, and talks more Reports he was able to ambulate with a walker in the hallway, and also says that the swallowing is improved Speech eval obtained, as patient coughing with any sips of liquid on admission Severe oropharyngeal dysphagia noted Neurology consulted and following, appreciate their input, patient started on Sinemet yesterday Review of Systems Review of Systems: All systems reviewed & are unremarkable except as noted in Subjective Physical Exam Physical Exam: GENERAL: The patient is of moderate build, not in acute distress. HEENT: NC/AT. EOMI. Pupils equal, round and reactive to light. Oral mucosa moist. NECK: No JVD, no neck masses. CARDIOVASCULAR: S1 and S2 heard. Regular rate and rhythm. No murmur, no gallop. RESPIRATORY SYSTEM: Normal AP diameter. No accessory muscle use. No wheezing, no crackles. ABDOMEN: Soft. Bowel sounds are present, nontender, no distention. CENTRAL NERVOUS SYSTEM:Awake and alert, answers simple questions appropriately, no facial asymmetry, moves extremities, gait not tested EXTREMITIES: trace lower extremity edema R>L present (much improved). Results & Data Results & Data ([facility]) Vital Signs (Past 12 Hours) Vital Signs Temp Pulse Resp BP Pulse Ox 03/12/22 02:19 37.2 C 03/11/22 23:00 36.6 C 99 H 20 145/79 H 99 Laboratory Results 03/12/22 Range/Units 07:53 Sodium 139 (136-145) mmol/L Potassium 4.4 (3.5-5.1) mmol/L Chloride 112 H (98-107) mmol/L Carbon Dioxide 21 (21-32) mmol/L Anion Gap 6 (3-11) BUN 14 (6-23) mg/dl Creatinine 0.88 D (0.6-1.4) mg/dl Est Cr Clr Drug Dosing 84.0 ml/min Est GFR ( Amer) 106.0 ml/min Est GFR (Non-Af Amer) 91.4 ml/min BUN/Creatinine Ratio 15.9 (10-20) Glucose 84 (70-99(Fasting)) mg/dl Calcium 8.6 (8.5-10.1) mg/dl Phosphorus 3.1 (2.5-4.9) mg/dl Magnesium 1.6 L (1.7-2.4) mg/dl Medications Administered Current Inpatient Medications Allopurinol (Allopurinol 300 Mg Tab) 300 mg PO [facility] Stop: 04/07/22 08:59 Last Admin: 03/11/22 08:42 Dose: 300 mg Documented by: Carbidopa/Levodopa (Carbidopa/Levodopa 25/100mg Tab) 1 tab PO BIDM [facility]; Taper Stop: 04/15/22 16:59 Last Admin: 03/11/22 16:06 Dose: 1 tab Documented by: Cyanocobalamin (Cyanocobalamin (B-12) 500 Mcg Tablet) 1,000 mcg PO [facility] Stop: 04/09/22 08:59 Last Admin: 03/11/22 08:42 Dose: 1,000 mcg Documented by: Enoxaparin Sodium (Enoxaparin Inj 40 Mg/0.4 Ml Syr) 40 mg SQ [facility] Stop: 04/06/22 22:59 Last Admin: 03/11/22 20:40 Dose: 40 mg Documented by: Folic Acid (Folic Acid 1 Mg Tab) 1 mg PO [facility] Stop: 04/07/22 08:59 Last Admin: 03/11/22 08:42 Dose: 1 mg Documented by: Lisinopril (Lisinopril 10 Mg Tab) 30 mg PO [facility] Stop: 04/07/22 08:59 Last Admin: 03/11/22 08:43 Dose: Not Given Documented by: Lorazepam (Lorazepam 2 Mg/1 Ml Vial) 0.5 mg IV Q4H PRN; Protocol PRN Reason: Anxiety/Agitation Stop: 04/06/22 22:31 Last Admin: 03/11/22 03:41 Dose: 0.5 mg Documented by: Multivitamins/Minerals (Cerovite Adv Formula Tab) 1 tab PO [facility] Stop: 04/07/22 08:59 Last Admin: 03/11/22 08:42 Dose: 1 tab Documented by: Ondansetron HCl (Ondansetron Inj 2 Mg/Ml 2 Ml Vial) 4 mg IV Q6H PRN PRN Reason: Nausea Stop: 04/06/22 22:31 Polyethylene Glycol (Polyethylene (Miralax) 17 Gm Pack) 17 gm PO DAILY PRN PRN Reason: Constipation Stop: 04/06/22 22:31 Thiamine HCl (Thiamine Hcl 100 Mg Tab) 200 mg PO TID [facility] Stop: 04/08/22 16:44 Last Admin: 03/11/22 20:39 Dose: 200 mg Documented by:
[2022-03-12] MEDS: lisinopril 10 MG TAB PO SCH (08:39)
[2022-03-12] MEDS: CARBIDOPA/LEVODOPA 25/100MG TAB PO SCH ×2 (08:39→17:23)
[2022-03-12] MEDS: CEROVITE ADV FORMULA TAB PO SCH (08:39)
[2022-03-12] MEDS: CYANOCOBALAMIN (B-12) 500 MCG TABLET PO SCH (08:39)
[2022-03-12] MEDS: THIAMINE HCL 100 MG TAB PO SCH ×3 (08:39→21:46)
[2022-03-12] MEDS: FOLIC ACID 1 MG TAB PO SCH (08:39)
[2022-03-12] MEDS: allopurinoL 300 MG TAB PO SCH (08:39)
[2022-03-12 11:09] LABS: BUN Creatinine Ratio 15.9 (10-20); Calcium 8.6 mg/dl (8.5-10.1); Est GFR (Non-African American) 91.4 ml/min; Magnesium 1.6 mg/dl (1.7-2.4); Phosphorus 3.1 mg/dl (2.5-4.9); Potassium 4.4 mmol/L (3.5-5.1)
--- NOTE | 2022-03-12 11:51 | Neurology Progress Note ---
Date of Service March 12, 2022 Assessment & Plan (1) Weakness: Plan: 1. MRI brain no acute findings 2. PT/OT speech for discharge needs- working on [facility] or alternative placement 3. start thiamine 200 mg TID for at least 5 days and then 100 mg daily there after 4. ammonia level 31 5. B12, folate supplement due to MCV 6. out patient EMG for peripheral neuropathy work up will be scheduled. has been requested after discharge from rehab 7. may benefit from a SUNDAR scan as outpatient to assess for parkinson's disease. can discharge when medically stable (2) Swallowing difficulty: Plan: 1. failed swallowing study for thin liquids, but tolerating and advised to clear throat during meals. Admission and Anticipated Discharge Date Admission Date: March 07, 2022 Supervising Physician Co-Signing Physician Notes I have seen and discussed above patient with Dr Yessi Malik, neurology. Patient seen and examined he appears much the same although yesterday and today he walked 100 feet with a walker and the assist of 2. No obvious confusion is noted. Patient is awake and alert may be a little more facial animation there is an intention tremor which is mildly modestly severe as well as a resting tremor with cogwheel rigidity. Strength is symmetric although mildly diffusely reduced and there is the previously mentioned bilateral FDI atrophy impression parkinsonism versus Parkinson's disease continue levodopa no objection to patient being transferred to rehabilitation. He will need an outpatient nerve conduction EMG. If he fails to respond to levodopa carbidopa he may need a DaTscan. Yessi Kaur is a 62 year old male with PMH- gout, HTN, alcoholism, presents to [facility] ED 03/07/2022 with ambulatory dysfunction. was recently in [facility] for alcoholism, ambulatory dysfunction, lower extremity swelling. As per family, all the workup was negative and he was there for 1 week and was treated for alcohol withdrawal and discharged last Saturday. He lives with his . At [facility], he was ambulating with a walker, but since coming home, he is not able to ambulate anything at all, not able to get up from the bed, that is why the brought him to the hospital for further physical therapy. He used to drink vodka 1 gallon every 2 days before he got admitted to [place], but since he came home, he is not drinking. Sinemet 25/100 mg was started. denies CP, SOB, abdominal pain, N, V. swallowing ok but feels it is getting stuck with dry foods. Review of Systems Review of Systems: All systems reviewed & are unremarkable except as noted in HPI & below Physical Exam Physical Exam: Physical Exam: Constitutional: appearance nourish, mildly confused Ears, Nose, Mouth and Throat: mucous membranes moist, no injection and skin normal, eyes normal Cardiovascular: normal S-1 and S-2 and regular rate and rhythm Respiratory: course breath sounds Musculoskeletal: slight swelling in right LE good distal pulses Skin: no stigmata of neurocutaneous disease noted and normal and intact Eyes: extraocular muscles intact (EOMI) and pupils equal, round and reactive to light (PERRL) NEUROLOGIC EXAMINATION: Mental status: Alert and interactive Oriented [facility] [address] he knows it is [place] Oriented to person Speech no slurred speech Cranial Nerves slight facial asymmetry Reflexes: Deep tendon reflexes were symmetrical and graded 2/5. Sensory: decreased with vibration, GT proprioception absent Coordination: finger to nose with reaching tremor, R>L Gait/Stance: Posture normal sitting in bedside chair, stood with assistance, very bradykinetic Motor: Negative for pronator drift of out stretched arms with eyes closed. no hand flap Strength: hand radiology physician assistant biceps triceps bilaterally 5/5, hip flex 4+/5, patellar flex ext 4+/5, plantar flex ext 5/5 Results & Data ([facility]) Vital Signs (Past 12 Hours) Vital Signs Temp Pulse Resp BP Pulse Ox 03/12/22 08:04 36.8 C 90 18 124/77 98 03/12/22 02:19 37.2 C Laboratory Results Abnormal lab results 03/12/22 Range/Units 07:53 Chloride 112 H (98-107) mmol/L Magnesium 1.6 L (1.7-2.4) mg/dl Diagnostic Findings MRI brain-Chronic age-related changes without evidence of acute infarct or hydrocephalus. Routine MRI brain is not sensitive for findings of Parkinson's disease. If clinical concern remains, Sundar scan or dedicated Parkinson's MRI with 3-D susceptibility weighted sequence of the substantia nigra can be performed.
[2022-03-12] MEDS: LORazepam 2 MG/1 ML VIAL IV PRN ×2 (12:43→13:10)
[2022-03-12] MEDS ORDERED: MAGNESIUM SULFATE / D5W 1 GM/100 ML BAG IV ONE (14:00)
[2022-03-12] MEDS: MAGNESIUM OXIDE 400 MG TAB PO SCH (15:17)
[2022-03-12] MEDS: ENOXAPARIN INJ 40 MG/0.4 ML SYR SQ SCH (21:45)
[2022-03-13] MEDS ORDERED: diphenhydrAMINE Capsule 25 MG CAP PO ONE (01:19)
[2022-03-13] MEDS ORDERED: diphenhydrAMINE Capsule 25 MG CAP ONE (01:28)
[2022-03-13] MEDS: CARBIDOPA/LEVODOPA 25/100MG TAB PO SCH ×2 (07:29→18:11)
[2022-03-13] MEDS: MAGNESIUM OXIDE 400 MG TAB PO SCH ×3 (07:29→21:10)
[2022-03-13] MEDS: FOLIC ACID 1 MG TAB PO SCH (07:30)
[2022-03-13] MEDS: THIAMINE HCL 100 MG TAB PO SCH ×3 (07:30→21:10)
[2022-03-13] MEDS: CYANOCOBALAMIN (B-12) 500 MCG TABLET PO SCH (07:30)
[2022-03-13] MEDS: CEROVITE ADV FORMULA TAB PO SCH (07:30)
[2022-03-13] MEDS: lisinopril 10 MG TAB PO SCH (07:30)
[2022-03-13] MEDS: allopurinoL 300 MG TAB PO SCH (07:31)
[2022-03-13 08:31] LABS: BUN Creatinine Ratio 13.1 (10-20); Calcium 8.9 mg/dl (8.5-10.1); Creatinine Clr Calc Pharmacy 69.1 ml/min; Est GFR (African American) 85.2 ml/min; Est GFR (Non-African American) 73.5 ml/min; Magnesium 1.7 mg/dl (1.7-2.4); Phosphorus 2.8 mg/dl (2.5-4.9); Potassium 4.3 mmol/L (3.5-5.1)
[2022-03-13] MEDS ORDERED: MAGNESIUM SULFATE / D5W 1 GM/100 ML BAG IV ONE (09:25)
[2022-03-13] MEDS ORDERED: LORazepam 0.5 MG TAB PO PRN (09:26)
--- NOTE | 2022-03-13 09:30 | Hospitalist Progress Note ---
Date of Service March 13, 2022 Assessment & Plan (1) Weakness: Plan: This is a 62-year-old male who presents with ambulatory dysfunction. 1. Ambulatory dysfunction: The patient was recently in the [facility] for alcoholism and ambulatory dysfunction. The workup was negative as per family. We will get physical therapy and occupational therapy evaluation. PT eval -recommends rehab Possibledeconditioning related to alcoholism Patient was discharged from [facility] on Librium 25 mg 3 times daily as needed. Per family, was quite drowsy after taking it. Neurology also consulted, brain MRI obatained IMPRESSION: Chronic age-related changes without evidence of acute infarct or hydrocephalus. Routine MRI brain is not sensitive for findings of Parkinson's disease. If clinical concern remains, Sundar scan or dedicated Parkinson's MRI with 3-D susceptibility weighted sequence of the substantia nigra can be performed. Per neurology, given weakness and dysphagia, physical exam (resting tremor, cogw heel rigidity, bradykinesia, masked facies, postural instability), likely consistent with parkinsonism. Trial of carbidopa/levodopa. Plan for EMG studies and neurology follow-up as outpatient. Continue thiamine, folic acid, B12 Dysphagia -Patient is coughing when drinking liquids -Chest x-ray negative -obtained speech eval - Aspiration with thin liquid barium. Patient has severe oropharyngeal dysphagia, needs cont. speech therapy 2. Alcoholism: recently was in [facility], -he was treated for alcoholism and hyponatremia as per the family and since coming home last Saturday, he is not drinking. Patient was discharged from [facility] on Librium 25 mg 3 times daily as needed. Per family, was quite drowsy after taking it. -We will continue with p.o. thiamine, folic acid, vitamin B12 , multivitamins and place him on IV Ativan p.r.n. for now and monitor. 3. Hypertension: Continue his lisinopril. 4. History of gout: Continue allopurinol. 5. Anemia: Hemoglobin of 8.9. We will follow Hemoccult studies and we will get iron studies, vitamin B12, and folate levels. B12, folate level normal Given elevated MCV -continue folic acid, B12 supplementation 6. Elevated liver function studies: Possibly from alcoholism. Follow the repeat laboratories. LFTs trending down/plateaued No abdominal/right upper quadrant pain on physical exam gallbladder ultrasound shows hepatomegaly and hepatic steatosis. We will monitor. If any concern, we will get gastrointestinal consult. DVT prophylaxis: Lovenox for now. DISPOSITION: Closely monitor in the medical floor. PT/OT. Social Service to help with discharge planning. Admission and Anticipated Discharge Date Admission Date: March 07, 2022 Subjective Patient seen in follow-up of weakness/ambulatory dysfunction Patient currently sitting up in chair, in no acute distress Denies any fevers, chills, chest pain, shortness of breath, abdomen, nausea vomiting He is also more responsive, and talks more, asking when he is going to go to rehab Reports he was able to ambulate with a walker in the hallway, and also says that the swallowing is improved Speech eval obtained, as patient coughing with any sips of liquid on admission Severe oropharyngeal dysphagia noted on initial eval Neurology consulted and following, appreciate their input, patient started on Sinemet Review of Systems Review of Systems: All systems reviewed & are unremarkable except as noted in Subjective Physical Exam Physical Exam: GENERAL: The patient is of moderate build, not in acute distress. HEENT: NC/AT. EOMI. Pupils equal, round and reactive to light. Oral mucosa moist. NECK: No JVD, no neck masses. CARDIOVASCULAR: S1 and S2 heard. Regular rate and rhythm. No murmur, no gallop. RESPIRATORY SYSTEM: Normal AP diameter. No accessory muscle use. No wheezing, no crackles. ABDOMEN: Soft. Bowel sounds are present, nontender, no distention. CENTRAL NERVOUS SYSTEM:Awake and alert, answers simple questions appropriately, no facial asymmetry, moves extremities, some intentional tremor noted as well, gait not tested, EXTREMITIES: trace lower extremity edema R>L present (much improved). Results & Data Results & Data ([facility]) Vital Signs (Past 12 Hours) Vital Signs Temp Pulse Resp BP Pulse Ox 03/13/22 07:18 36.5 C 91 H 18 105/69 99 03/13/22 00:32 37.4 C 99 H 18 103/63 98 Laboratory Results 03/13/22 03/12/22 Range/Units 07:20 07:53 Sodium 136 139 (136-145) mmol/L Potassium 4.3 4.4 (3.5-5.1) mmol/L Chloride 108 H 112 H (98-107) mmol/L Carbon Dioxide 22 21 (21-32) mmol/L Anion Gap 6 6 (3-11) BUN 14 14 (6-23) mg/dl Creatinine 1.07 0.88 D (0.6-1.4) mg/dl Est Cr Clr Drug Dosing 69.1 84.0 ml/min Est GFR ( Amer) 85.2 106.0 ml/min Est GFR (Non-Af Amer) 73.5 91.4 ml/min BUN/Creatinine Ratio 13.1 15.9 (10-20) Glucose 89 84 (70-99(Fasting)) mg/dl Calcium 8.9 8.6 (8.5-10.1) mg/dl Phosphorus 2.8 3.1 (2.5-4.9) mg/dl Magnesium 1.7 1.6 L (1.7-2.4) mg/dl Medications Administered Current Inpatient Medications Allopurinol (Allopurinol 300 Mg Tab) 300 mg PO [facility] Stop: 04/07/22 08:59 Last Admin: 03/13/22 07:31 Dose: 300 mg Documented by: Carbidopa/Levodopa (Carbidopa/Levodopa 25/100mg Tab) 1 tab PO BIDM [facility]; Taper Stop: 04/15/22 16:59 Last Admin: 03/13/22 07:29 Dose: 1 tab Documented by: Cyanocobalamin (Cyanocobalamin (B-12) 500 Mcg Tablet) 1,000 mcg PO [facility] Stop: 04/09/22 08:59 Last Admin: 03/13/22 07:30 Dose: 1,000 mcg Documented by: Enoxaparin Sodium (Enoxaparin Inj 40 Mg/0.4 Ml Syr) 40 mg SQ [facility] Stop: 04/06/22 22:59 Last Admin: 03/12/22 21:45 Dose: 40 mg Documented by: Folic Acid (Folic Acid 1 Mg Tab) 1 mg PO [facility] Stop: 04/07/22 08:59 Last Admin: 03/13/22 07:30 Dose: 1 mg Documented by: Magnesium Sulfate/Dextrose (Magnesium Sulfate / D5w) 1 gm in 100 mls @ 50 mls/hr IV ONE ONE Stop: 03/13/22 11:24 Lisinopril (Lisinopril 10 Mg Tab) 30 mg PO [facility] Stop: 04/07/22 08:59 Last Admin: 03/13/22 07:30 Dose: 30 mg Documented by: Lorazepam (Lorazepam 2 Mg/1 Ml Vial) 0.5 mg IV Q4H PRN; Protocol PRN Reason: Anxiety/Agitation Stop: 04/06/22 22:31 Last Admin: 03/12/22 13:10 Dose: 0.5 mg Documented by: Magnesium Oxide (Magnesium Oxide 400 Mg Tab) 400 mg PO BID [facility] Stop: 04/12/22 09:29 Multivitamins/Minerals (Cerovite Adv Formula Tab) 1 tab PO QAM [facility] Stop: 04/07/22 08:59 Last Admin: 03/13/22 07:30 Dose: 1 tab Documented by: Ondansetron HCl (Ondansetron Inj 2 Mg/Ml 2 Ml Vial) 4 mg IV Q6H PRN PRN Reason: Nausea Stop: 04/06/22 22:31 Polyethylene Glycol (Polyethylene (Miralax) 17 Gm Pack) 17 gm PO DAILY PRN PRN Reason: Constipation Stop: 04/06/22 22:31 Thiamine HCl (Thiamine Hcl 100 Mg Tab) 200 mg PO TID [facility] Stop: 04/08/22 16:44 Last Admin: 03/13/22 07:30 Dose: 200 mg Documented by:
--- NOTE | 2022-03-13 16:37 | Neurology Progress Note ---
Date of Service March 13, 2022 Assessment & Plan (1) Weakness: Plan: 1. MRI brain no acute findings 2. PT/OT speech for discharge needs- working on [facility] or alternative placement 3. start thiamine 200 mg TID for at least 5 days and then 100 mg daily there after 4. ammonia level 31 5. B12, folate supplement due to MCV 6. out patient EMG for peripheral neuropathy work up will be scheduled. has been requested after discharge from rehab 7. may benefit from a ADALGISA scan as outpatient to assess for parkinson's disease. can discharge when medically stable ?? whether there may be some EtoH withdrawal involved. more confused and more tremulous (2) Swallowing difficulty: Plan: 1. failed swallowing study for thin liquids, but tolerating and advised to clear throat during meals. Admission and Anticipated Discharge Date Admission Date: March 07, 2022 Supervising Physician Co-Signing Physician Notes I have seen and discussed above patient with Dr Yessi Malik, neurology. Patient seen and examined. The patient has no complaints. Family feels he is more confused having received several doses of levodopa carbidopa. They also feel it is making his mood fluctuate. The patient ambulated with a 1 assist today. And he is awake and alert oriented. There is facial masking decreased blink frequency. He is mildly tremulous on intention today I do not see any resting tremor but there is cogwheel rigidity on the right with reinforcement he is certainly bradykinetic with difficulty initiating movement random freezing and increased steps per turn This past patient has polyfactorial gait dysfunction. He has chronically used alcohol eye and appears to have a peripheral neuropathy. His gait dysfunction is not explained by peripheral neuropathy. He also has some atrophy of the ulnar intrinsics without any other obvious atrophy. This may be from leaning on his elbows but the patient needs nerve conduction EMG of bilateral upper and 1 lower to evaluate for neuropathy as well as the atrophy of the hands. I do not see any evidence of convincing disorder of motor neurons. The family has concerns that he does not have parkinsonism they may decide to discontinue the levodopa carbidopa. Defer to family. I would recommend he see neurology as an outpatient. They should perform the aforementioned and consider a DaTscan. We will sign off Yessi Malik MD Flynn Kaur is a 62 year old male with PMH- gout, HTN, alcoholism, presents to [facility] 03/07/2022 with ambulatory dysfunction. was recently in [facility] for alcoholism, ambulatory dysfunction, lower extremity swelling. As per family, all the workup was negative and he was there for 1 week and was treated for alcohol withdrawal and discharged last Saturday. He lives with his . At [facility], he was ambulating with a walker, but since coming home, he is not able to ambulate anything at all, not able to get up from the bed, that is why the brought him to the hospital for further physical therapy. He used to drink vodka 1 gallon every 2 days before he got admitted to [place], but since he came home, he is not drinking. Sinemet 25/100 mg was started. son in law questioning if causing confusion. denies CP, SOB, abdominal pain, N, V. swallowing ok but feels it is getting stuck with dry foods. Review of Systems Review of Systems: All systems reviewed & are unremarkable except as noted in HPI & below Physical Exam Physical Exam: Physical Exam: Constitutional: appearance nourish, mildly confused Ears, Nose, Mouth and Throat: mucous membranes moist, no injection and skin normal, eyes normal Cardiovascular: normal S-1 and S-2 and regular rate and rhythm Respiratory: course breath sounds Musculoskeletal: slight swelling in right LE good distal pulses Skin: no stigmata of neurocutaneous disease noted and normal and intact Eyes: extraocular muscles intact (EOMI) and pupils equal, round and reactive to light (PERRL) NEUROLOGIC EXAMINATION: Mental status: Alert and interactive Oriented thinks he is [facility] and it is May Oriented to person Speech no slurred speech Cranial Nerves slight facial asymmetry Reflexes: Deep tendon reflexes were symmetrical and graded 2/5. Sensory: decreased with vibration, GT proprioception absent Coordination: finger to nose with reaching tremor, R>L , much worse then yesterday Gait/Stance: Posture normal sitting in bedside chair Motor: Negative for pronator drift of out stretched arms with eyes closed. no hand flap Strength: hand director of residential services biceps triceps bilaterally 5/5, hip flex 4+/5, patellar flex ext 4+/5, plantar flex ext 5/5 Results & Data ([facility]) Vital Signs (Past 12 Hours) Vital Signs Temp Pulse Resp BP Pulse Ox 03/13/22 15:36 37.1 C 93 H 18 111/72 100 03/13/22 07:18 36.5 C 91 H 18 105/69 99 Laboratory Results Abnormal lab results 03/13/22 Range/Units 07:20 Chloride 108 H (98-107) mmol/L Diagnostic Findings no new imaging
[2022-03-13] MEDS ORDERED: LORazepam 0.5 MG in SYRINGE 0.75 ML IV PRN (20:43)
[2022-03-13] MEDS: ENOXAPARIN INJ 40 MG/0.4 ML SYR SQ SCH (21:10)
[2022-03-13] MEDS ORDERED: LORazepam 0.5 MG in SYRINGE 0.25 ML IV PRN (21:12)
[2022-03-14] MEDS: CARBIDOPA/LEVODOPA 25/100MG TAB PO SCH (08:07)
[2022-03-14] MEDS: allopurinoL 300 MG TAB PO SCH (08:40)
[2022-03-14] MEDS: lisinopril 10 MG TAB PO SCH (08:41)
[2022-03-14] MEDS: CYANOCOBALAMIN (B-12) 500 MCG TABLET PO SCH (08:41)
[2022-03-14] MEDS: FOLIC ACID 1 MG TAB PO SCH (08:41)
[2022-03-14] MEDS: CEROVITE ADV FORMULA TAB PO SCH (08:42)
[2022-03-14] MEDS: MAGNESIUM OXIDE 400 MG TAB PO SCH (08:42)
[2022-03-14] MEDS: THIAMINE HCL 100 MG TAB PO SCH (08:42)
--- NOTE | 2022-03-14 10:35 | Hospitalist Progress Note ---
Date of Service March 14, 2022 Assessment & Plan (1) Weakness: Plan: This is a 62-year-old male who presents with ambulatory dysfunction. 1. Ambulatory dysfunction: The patient was recently in the [facility] for alcoholism and ambulatory dysfunction. The workup was negative as per family. We will get physical therapy and occupational therapy evaluation. PT eval -recommends rehab Possibledeconditioning related to alcoholism Patient was discharged from [facility] on Librium 25 mg 3 times daily as needed. Per family, was quite drowsy after taking it. Neurology also consulted, brain MRI obatained IMPRESSION: Chronic age-related changes without evidence of acute infarct or hydrocephalus. Routine MRI brain is not sensitive for findings of Parkinson's disease. If clinical concern remains, Sundar scan or dedicated Parkinson's MRI with 3-D susceptibility weighted sequence of the substantia nigra can be performed. Per neurology, given weakness and dysphagia, physical exam (resting tremor, cogw heel rigidity, bradykinesia, masked facies, postural instability), likely consistent with parkinsonism. Trial of carbidopa/levodopa. Family is not sure if they want to continue with Sinemet, per neurology note, if family decides, they can discontinue however patient should follow-up with outpatient neurology Plan for EMG studies and neurology follow-up as outpatient. Continue thiamine, folic acid, B12 Dysphagia -Patient is coughing when drinking liquids -Chest x-ray negative -obtained speech eval - Aspiration with thin liquid barium. Patient has severe oropharyngeal dysphagia, needs cont. speech therapy Please see speech therapist note for further detail 2. Alcoholism: recently was in [facility], -he was treated for alcoholism and hyponatremia as per the family and since coming home last Saturday, he is not drinking. Patient was discharged from [facility] on Librium 25 mg 3 times daily as needed. Per family, was quite drowsy after taking it. -We will continue with p.o. thiamine, folic acid, vitamin B12 , multivitamins and place him on IV Ativan p.r.n. for now and monitor. For discharge, will order 0.5 mg p.o. Ativan 3 times daily as needed for possible anxiety/agitation Patient is to be discharged to [facility] 3. Hypertension: Continue his lisinopril. 4. History of gout: Continue allopurinol. 5. Anemia: Hemoglobin of 8.9. We will follow Hemoccult studies and we will get iron studies, vitamin B12, and folate levels. B12, folate level normal Given elevated MCV -continue folic acid, B12 supplementation 6. Elevated liver function studies: Possibly from alcoholism. Follow the repeat laboratories. LFTs trending down/plateaued No abdominal/right upper quadrant pain on physical exam gallbladder ultrasound shows hepatomegaly and hepatic steatosis. We will monitor. If any concern, we will get gastrointestinal consult. DVT prophylaxis: Lovenox for now. DISPOSITION:ID to [facility]. Admission and Anticipated Discharge Date Admission Date: March 07, 2022 Subjective Patient seen in follow-up of weakness/ambulatory dysfunction Patient currently sitting up in chair, in no acute distress Denies any fevers, chills, chest pain, shortness of breath, abdomen, nausea vomiting He is also more responsive, discussed his discharge to [facility] Counseled on alcohol abstinence, patient seems to be determined to quit Reports he was able to ambulate with a walker in the hallway, and also says that the swallowing is improved Speech eval obtained, as patient coughing with any sips of liquid on admission Severe oropharyngeal dysphagia noted on initial eval Neurology consulted and following, appreciate their input, patient started on Sinemet Review of Systems Review of Systems: All systems reviewed & are unremarkable except as noted in Subjective Physical Exam Physical Exam: GENERAL: The patient is of moderate build, not in acute distress. HEENT: NC/AT. EOMI. Pupils equal, round and reactive to light. Oral mucosa moist. NECK: No JVD, no neck masses. CARDIOVASCULAR: S1 and S2 heard. Regular rate and rhythm. No murmur, no gallop. RESPIRATORY SYSTEM: Normal AP diameter. No accessory muscle use. No wheezing, no crackles. ABDOMEN: Soft. Bowel sounds are present, nontender, no distention. CENTRAL NERVOUS SYSTEM:Awake and alert, answers simple questions appropriately, no facial asymmetry, moves extremities, some intentional tremor noted as well, gait not tested, EXTREMITIES: trace lower extremity edema R>L present (much improved). Results & Data Results & Data ([facility]) Vital Signs (Past 12 Hours) Vital Signs Temp Pulse Resp BP Pulse Ox 03/14/22 07:21 37.1 C 97 H 18 144/72 H 99 Medications Administered Current Inpatient Medications Allopurinol (Allopurinol 300 Mg Tab) 300 mg PO QAM [facility] Stop: 04/07/22 08:59 Last Admin: 03/14/22 08:40 Dose: 300 mg Documented by: Carbidopa/Levodopa (Carbidopa/Levodopa 25/100mg Tab) 1 tab PO BIDM [facility]; Taper Stop: 04/15/22 16:59 Last Admin: 03/14/22 08:07 Dose: 1 tab Documented by: Cyanocobalamin (Cyanocobalamin (B-12) 500 Mcg Tablet) 1,000 mcg PO QAM [facility] Stop: 04/09/22 08:59 Last Admin: 03/14/22 08:41 Dose: 1,000 mcg Documented by: Enoxaparin Sodium (Enoxaparin Inj 40 Mg/0.4 Ml Syr) 40 mg SQ HS [facility] Stop: 04/06/22 22:59 Last Admin: 03/13/22 21:10 Dose: 40 mg Documented by: Folic Acid (Folic Acid 1 Mg Tab) [facility] [place]: 04/07/22 08:59 Last Admin: 03/14/22 08:41 Dose: 1 mg Documented by: Lorazepam 0.5 mg/ Syringe 0.5 mls @ 2 mls/min IV Q4H PRN PRN Reason: Anxiety/agitation Stop: 04/12/22 21:11 Last Admin: 03/13/22 21:46 Dose: 2 mls/min Documented by: Lisinopril (Lisinopril 10 Mg Tab) [facility] [place]: 04/07/22 08:59 Last Admin: 03/14/22 08:41 Dose: 30 mg Documented by: Lorazepam (Lorazepam 0.5 Mg Tab) 0.5 mg PO TID PRN PRN Reason: Anxiety, agitation Stop: 04/12/22 09:25 Last Admin: 03/14/22 05:29 Dose: 0.5 mg Documented by: Magnesium Oxide (Magnesium Oxide 400 Mg Tab) 400 mg PO BID [facility] Stop: 04/12/22 09:29 Last Admin: 03/14/22 08:42 Dose: 400 mg Documented by: Multivitamins/Minerals (Cerovite Adv Formula Tab) [facility] [place]: 04/07/22 08:59 Last Admin: 03/14/22 08:42 Dose: 1 tab Documented by: Ondansetron HCl (Ondansetron Inj 2 Mg/Ml 2 Ml Vial) 4 mg IV Q6H PRN PRN Reason: Nausea Stop: 04/06/22 22:31 Polyethylene Glycol (Polyethylene (Miralax) 17 Gm Pack) 17 gm PO DAILY PRN PRN Reason: Constipation Stop: 04/06/22 22:31 Thiamine HCl (Thiamine Hcl 100 Mg Tab) 200 mg PO TID [facility]ER[facility] Stop: 04/08/22 16:44 Last Admin: 03/14/22 08:42 Dose: 200 mg Documented by:
--- NOTE | 2022-03-14 11:48 | Discharge Summary ---
Date of Service March 14, 2022 Admission HPI Per Admitting Provider A 62-year-old male with past medical history significant for gout, hypertension, alcoholism, comes with ambulatory dysfunction. The patient was recently in [facility] for alcoholism, ambulatory dysfunction, lower extremity swelling. As per family, all the workup was negative and he was there for 1 week and was treated for alcohol withdrawal and discharged last Saturday. He lives with his . At [facility], he was ambulating with a walker, but since coming home, he is not able to ambulate anything at all, not able to get up from the bed, that is why the brought him to the hospital for further physical therapy. He used to drink vodka 1 gallon every 2 days before he got admitted to [place], but since he came home, he is not drinking. The patient is alert and oriented. Denies any headache. No blurred visions, no earache, no runny nose, no sore throat, no cough, no chest pain, no shortness of breath. No nausea, no vomiting, no abdominal pain, normal bowel and bladder movements. Denies any cough, no fevers, resting comfortably. He says he is eating and swallowing okay. Admission Exam Per Admitting Provider GENERAL: The patient is of moderate build, not in acute distress. VITAL SIGNS: Temperature 36.3, pulse 82, respiratory rate 19, blood pressure 139/84, oxygen 100% on room air. HEENT: Pupils equal, round and reactive to light. Oral mucosa moist. NECK: No JVD, no neck masses. CARDIOVASCULAR: S1 and S2 heard. Regular rate and rhythm. No murmur, no gallop. RESPIRATORY SYSTEM: Normal AP diameter. No accessory muscle use. No wheezing, no crackles. ABDOMEN: Soft. Bowel sounds are present, nontender, no distention. CENTRAL NERVOUS SYSTEM: Cranial nerves II-XII grossly intact, nonfocal. EXTREMITIES: Bilateral lower extremity edema present, right greater than left, erythema seen. Principal Diagnosis Ambulatory dysfunction dysphagia Alcoholism Possible Parkinson's disease Discharge Exam GENERAL: The patient is of moderate build, not in acute distress. HEENT: NC/AT. EOMI. Pupils equal, round and reactive to light. Oral mucosa moist. NECK: No JVD, no neck masses. CARDIOVASCULAR: S1 and S2 heard. Regular rate and rhythm. No murmur, no gallop. RESPIRATORY SYSTEM: Normal AP diameter. No accessory muscle use. No wheezing, no crackles. ABDOMEN: Soft. Bowel sounds are present, nontender, no distention. CENTRAL NERVOUS SYSTEM:Awake and alert, answers simple questions appropriately, no facial asymmetry, moves extremities, some intentional tremor noted as well, gait not tested, EXTREMITIES: trace lower extremity edema R>L present (much improved). Discharge Data Allergies Allergy/AdvReac Type Severity Reaction Status Date / Time No Known Allergies Allergy Unverified 03/07/22 17:14 Consultations 03/07/22 19:22 ED Decision to Admit Stat 03/09/22 16:06 Consult Neurology Routine Ordered Studies 03/07/22 18:47 US gallbladder Stat IMPRESSION: 1. No acute sonographic abnormality is seen in the right upper quadrant. No gallstones are identified. 2. Hepatomegaly and hepatic steatosis. US venous doppler LE RT Stat IMPRESSION: There is no sonographic evidence of deep venous thrombosis ident ified in the right lower extremity. 03/09/22 13:15 FL video swallow Routine IMPRESSION: 1. Aspiration with thin liquid barium. 2. Please see the speech pathologist report for detailed findings and recommendations. 03/10/22 09:11 MR brain wo/w con Routine IMPRESSION: Chronic age-related changes without evidence of acute infarct or hydrocephalus. Routine MRI brain is not sensitive for findings of Parkinson's disease. If clinical concern remains, Sundar scan or dedicated Parkinson's MRI with 3-D susceptibility weighted sequence of the substantia nigra can be performed. Hospital Course (1) Weakness: This is a 62-year-old male who presents with ambulatory dysfunction. 1. Ambulatory dysfunction: The patient was recently in the [facility] for alcoholism and ambulatory dysfunction. The workup was negative as per family. We will get physical therapy and occupational therapy evaluation. PT eval -recommends rehab Possibledeconditioning related to alcoholism Patient was discharged from [facility] on Librium 25 mg 3 times daily as needed. Per family, was quite drowsy after taking it. Neurology also consulted, brain MRI obatained IMPRESSION: Chronic age-related changes without evidence of acute infarct or hydrocephalus. Routine MRI brain is not sensitive for findings of Parkinson's disease. If clinical concern remains, Sundar scan or dedicated Parkinson's MRI with 3-D susceptibility weighted sequence of the substantia nigra can be performed. Per neurology, given weakness and dysphagia, physical exam (resting tremor, cogwheel rigidity, bradykinesia, masked facies, postural instability), likely consistent with parkinsonism. Trial of carbidopa/levodopa. Family is not sure if they want to continue with Sinemet, per neurology note, if family decides, they can discontinue however patient should follow-up with outpatient neurology Plan for EMG studies and neurology follow-up as outpatient. Continue thiamine, folic acid, B12 Dysphagia -Patient is coughing when drinking liquids -Chest x-ray negative -obtained speech eval - Aspiration with thin liquid barium. Patient has severe oropharyngeal dysphagia, needs cont. speech therapy Please see speech therapist note for further detail 2. Alcoholism: recently was in [facility], -he was treated for alcoholism and hyponatremia as per the family and since coming home last Saturday, he is not drinking. Patient was discharged from [facility] on Librium 25 mg 3 times daily as needed (6 pills per PDMP). Per family, was quite drowsy after taking it. -We will continue with p.o. thiamine, folic acid, vitamin B12 , multivitamins and place him on IV Ativan p.r.n. for now and monitor. For discharge, will order 0.5 mg p.o. Ativan 3 times daily as needed for possible anxiety/agitation Patient is to be discharged to [facility] 3. Hypertension: Continue his lisinopril. 4. History of gout: Continue allopurinol. 5. Anemia: Hemoglobin of 8.9. We will follow Hemoccult studies and we will get iron studies, vitamin B12, and folate levels. B12, folate level normal Given elevated MCV -continue folic acid, B12 supplementation Hemoccult was not obtained, follow-up anemia as outpatient 6. Elevated liver function studies: Possibly from alcoholism. Follow the repeat laboratories. LFTs trending down/plateaued No abdominal/right upper quadrant pain on physical exam gallbladder ultrasound shows hepatomegaly and hepatic steatosis. We will monitor. If any concern, we will get gastrointestinal consult. DISPOSITION:IN to [facility]. Total Time Total Time Spent Total Time Spent (In Minutes): 40 Discharge Plan Discharge Items Patient Disposition: Transfer Inpatient Rehab Fac Reason For Visit: AMBULATORY DYSFUNCTION Discharge Diagnosis: Ambulatory dysfunction dysphagia Alcoholism Possible Parkinson's disease Activity: Per Instructions section Non-emergency contact: Primary Care Provider and Neurologist Call non-emergency contact if: you have any medication questions and your symptoms worsen Follow-up/Referrals: Gurdeep Jiang MD [Primary Care Provider] - Diet: Heart Healthy Diet Texture: Easy to Chew Diet Comment: Per speech eval recommendations Addtl Attending Provider Instructions: You were started on a new medication, Sinemet, take it as prescribed. You will need to follow-up with neurology after your rehabilitation. Take vitamin supplements as prescribed, especially thiamine 100 mg daily, vitamin B12 and folic acid. It is crucial that you completely abstain from alcohol. Pending Studies at Discharge: No Stand-Alone Forms: [facility] Skilled Items Patient informed of condition?: Yes DNR: No Discharge Level of Care: Acute rehab Communicable Disease: No Discharge Prognosis: Stable Lines: None Urinary Catheter: No Medications and DC Order Prescriptions: New magnesium oxide 400 mg (241.3 mg magnesium) Tablet 400 mg PO BID Qty: 10 RF: 0 cyanocobalamin (vitamin B-12) 500 mcg Tablet 1,000 mcg PO QAM Qty: 14 RF: 0 folic acid 1 mg Tablet 1 mg PO QAM Qty: 14 RF: 0 thiamine HCl (vitamin B1) 100 mg Tablet 100 mg PO DAILY Qty: 14 RF: 0 Cerovite Senior 0.4 mg-300 mcg- 250 mcg Tablet 1 tab PO QAM Qty: 14 RF: 0 lorazepam 0.5 mg Tablet 0.5 mg PO TID PRN (Reason: anxiety, agitation) Qty: 5 RF: 0 carbidopa-levodopa [Sinemet] 25-100 mg Tablet 1 tab PO BIDM Qty: 60 RF: 0 Continued lisinopril 30 mg Tablet 30 mg PO QAM RF: 0 allopurinol 300 mg Tablet 300 mg PO QAM RF: 0 Discontinued chlordiazepoxide HCl [Librium] 25 mg Capsule 25 mg PO TID PRN (Reason: Anxiety) RF: 0 dexamethasone [Decadron] 4 mg Tablet 4 mg PO QAM RF: 0 Discharge Orders: Discharge Order (Routine); Ordered 03/14/22 Ordered By: Polo Santo Admission Data Admit Date/Time: 03/07/22 20:59 Attending Provider: Polo Santo Admit Provider: Kanu Shaw Primary Care Provider: Gurdeep Jiang Other Providers: Kanu Shaw ; [facility] ; Yessi Malik
== END 2022-03-14 13:27 | DRG 57 ==
LOC: ED 16:14 → 3W 20:59